=== PATIENT | male | born 1965 | race Hispanic/Latino ===

== ENCOUNTER 2016-06-19 08:19 | Inpatient (IN) | payer OTHER ==
[~2016-06-19] VITALS: Ht 190.5 cm; Wt 144.7 kg
[~2016-06-19 08:19] MED LIST: ALBUTEROL2.5 MG/3 M INH; ALLERGY12.5 MG/5 PO; AMOXIL500 MG PO; ARTIFICIAL TEA1 EACH OPH; BISAC-EVAC10 M1 PR; CILOXAN5 ML OPH; CLONAZEPAM2 MG PO; CLOZAPINE100 MG PO; CLOZAPINE50 MG PO; DESITIN DIAPER28 GM TOP; DISULFIRAM250 MG PO; FIORICET 325 MG1 TAB PO; FLOMAX0.4 M1 PO; FLUTICASONE PRO16 GM NAS; HALOPERIDOL2 M1 PO; HEPARIN SO5000 UNIT3 SC; HYDRODIURIL 112.5 MG PO; HYDRODIURIL 2525 MG PO; IBUPROFEN100 MG/52 PO; IPRATROPIU0.2 MG/1 M INH; ITCH RELIEF CRE28 GM TOP; KLONOPIN1 M1 PO; LAMICTAL 100MG100 MG PO; LAMOTRIGINE150 M1 PO; MIRALAX119 GM PO; MIRTAZAPINE15 MG PO; NYSTATIN-TRIAMC15 GM TOP; NYSTATIN100000 UNI PO; OLANZAPINE15 M1 PO; PANTOPRAZOLE SO40 MG PO; PERCOCET 325 MG1 TA2 PO; PRINIVIL5 M1 PO; PROPRANOLOL HCL40 MG PO; PROTONIX IV40 M1 IV; PROTONIX40 M3 IV; SIMVASTATIN20 MG PO; TYLENOL325 M1 PO; VALPROIC A250 MG/53 PO; VITAMIN A & D56.7 GM TOP; ZOFRAN4 M1 SL; ZYPREXA15 MG PO; ZYPREXA5 MG
--- NOTE | 2016-06-19 08:43 | NUR ---
PT BIBA FROM HOME FOR C/O SOB. PT WITH TEMP OF 102.8. PT RECEIVED NEB TREATMENT ON ROUTE TO ED BY MEDIC FOR WHEEZING. PT HAS DIMINISHED BREATH SOUNDS ON ARRIVAL. PT 02 SAT 93% ON RA. PT C/O FEELING LIKE HE CAN'T BREATH. PT PLACED ON O2 2L VIA NC SAT 94%. RESP. PAGED FOR SECOND NEB TREATMENT. PT STATES HE HAS BEEN USING HIS MDI. PT DENIES COUGH. FLU SWAB OBTAINED AND SENT
--- NOTE | 2016-06-19 08:47 | ED DYSPNEA/ASTHMA COMPLAINT ---
History of Present Illness General Chief Complaint: Dyspnea (COPD, CHF, Other) Stated Complaint: BIBA FOR SOB Source: patient Exam Limitations: no limitations Vital Signs & Intake/Output Vital Signs & Intake/Output Vital Signs Date Time Temp Pulse Resp B/P Pulse O2 O2 Flow FiO2 Ox Delivery Rate 06/19 1316 102.7 125 20 148/77 06/19 1313 102.7 06/19 1245 102.7 125 20 148/77 94 Nasal 3.0L Cannula 06/19 1131 101.0 115 18 126/73 95 Nasal 2.0L Cannula 06/19 1102 100.8 120 22 128/72 06/19 1017 100.8 120 22 128/72 96 Nasal 3.0L Cannula 06/19 0948 100.6 06/19 0948 100.6 06/19 0921 101.2 145 22 145/68 96 Nasal 2.0L Cannula 06/19 0908 94 Nasal 2.0L Cannula 06/19 0850 94 Nasal Cannula 06/19 0849 102.8 06/19 0843 102.8 06/19 0832 102.8 139 22 158/95 92 Room Air Allergies Coded Allergies: ceftriaxone (fever, rash, eosinophilia 01/16/16) Reconcile Medications Amlodipine Besylate 10 MG TABLET 1 TAB PO DAILY HTN (Reported) Aspirin (Aspirin*) 81 MG TAB.CHEW 2 TAB PO DAILY HEART HEALTH Losartan Potassium 25 MG TABLET 1 TAB PO DAILY HTN (Reported) Metoprolol Succinate 25 MG TAB 1 TAB PO DAILY heart rate control Olanzapine 20 MG TABLET 1 TAB PO BID SCHIZOAFFECTIVE DISORDER (Reported) Simvastatin (Simvastatin*) 20 MG TABLET 1 TAB PO QPM CHOLESTREOL (Reported) Triage Note: PT BIBA FROM HOME FOR C/O SOB. PT WITH TEMP OF 102.8. PT RECEIVED NEB TREATMENT ON ROUTE TO ED BY MEDIC FOR WHEEZING. PT HAS DIMINISHED BREATH SOUNDS ON ARRIVAL. PT 02 SAT 93% ON RA. PT C/O FEELING LIKE HE CAN'T BREATH. PT PLACED ON O2 2L VIA NC SAT 94%. RESP. PAGED FOR SECOND NEB TREATMENT. PT STATES HE HAS BEEN USING HIS MDI. PT DENIES COUGH. FLU SWAB OBTAINED AND SENT Triage Nurses Notes Reviewed? yes HPI: THIS PATIENT is a 50-year-old male with a past medical history including CHF, hypertension, and schizoaffective disorder who presented to the emergency department today brought in by ambulance for evaluation of shortness of breath. The patient reported that he started feeling short of breath this morning while he was sitting down. The patient reported that he also developed some chest pain in the center of his chest which lasted approximately one hour and then resolved on its own. He reported that the chest pain got better when he sat up from a laying position. He was unable to read this chest pain on a scale of 1- 10. It was nonradiating. The patient reported that yesterday he was having 10 out of 10 central abdominal pain with nausea and no vomiting. He reported chills, but denied any fevers. The patient denied any diarrhea or constipation. He denied any current chest pain, palpitations, visual changes, headaches, jaw pain, arm pain, numbness or tingling in his extremities, or any other associated symptoms. (HORTENCIA KRAMER PA-C) Past History Travel History Traveled to [place] past 21 day No Medical History Any Pertinent Medical History? see below for history Neurological: TIA EENT: NONE Cardiovascular: CHF, hypertension Respiratory: Sleep Apnea Gastrointestinal: NONE Hepatic: NONE Renal: NONE Musculoskeletal: fracture, ANKLE FX/SX Psychiatric: schizo affective disorder, history of alcohol abuse Endocrine: NONE Blood Disorders: NONE Cancer(s): NONE PIGEON FANCIER/Reproductive: NONE History of MRSA: No History of VRE: No History of CDIFF: No Surgical History Surgical History: ANKLE FX/SX Psychosocial History Who do you live with Family Services at Home Nursing What is your primary language Hebrew Tobacco Use: Current Daily Use Daily Tobacco Use Amount/Type: =< 4 Cigarettes daily ETOH Use: denies use Illicit Drug Use: denies illicit drug use Family History Family History, If Any: Relation not specified for: *No pertinent family history Hx Contributory? No (HORTENCIA KRAMER PA-C) Review of Systems Review of Systems Constitutional: Reports: see HPI. EENTM: Reports: no symptoms. Respiratory: Reports: see HPI. Cardiovascular: Reports: see HPI. GI: Reports: see HPI. Genitourinary: Reports: no symptoms. Musculoskeletal: Reports: no symptoms. Skin: Reports: no symptoms. Neurological/Psychological: Reports: no symptoms. All Other Systems: Reviewed and Negative (HORTENCIA KRAMER PA-C) Physical Exam Physical Exam Respiratory: normal breath sounds, chest non-tender, NO WHEEZES, RALES, OR RHONCHI. nO ACCESSORY MUSCLE USE. nO STRIDOR. nO DECREASED BREATH SOUNDS Comments: Well-developed well-nourished person in mild distress HEENT: Normal EENT exam, head normocephalic, moist mucous membranes PERRLA bilaterally Pharynx normal. No swelling or edema. Neck: Supple, no lymphadenopathy Back: Normal inspection Cardiovascular: Regular rate and rhythm with no murmurs, rubs or gallops. No JVD. No carotid bruits. No lower extremity edema Abdomen: Soft. Nontender. Nondistended. Normoactive bowel sounds. No organomegaly appreciated. Normoactive bowel sounds Extremity: No edema, no calf tenderness to palpation, normal and equal pulses. Neuro: Alert oriented x3, cranial nerves II through XII grossly intact. Skin: No appreciable rash on exposed skin, skin is warm and dry. Psych: Mood and affect is normal Core Measures ACS in differential dx? Yes Severe Sepsis Present: No Septic Shock Present: No (WILLIAMS ANDERSON,HORTENCIA) Progress Differential Diagnosis: asthma, AMI, bronchitis, costochondritis, CHF, COPD, musculoskeletal pain, pericarditis, pulmonary embolism, pneumonia, pneumothorax, unstable angina Plan of Care: Orders Procedure Date/time Status MAGNESIUM 06/20 0600 Active CBC WITHOUT DIFFERENTIAL 06/20 0600 Active BASIC ELECTROLYTES PLUS BUN&CR 06/20 0600 Active Heart Healthy Diet 06/19 D Active TROPONIN LEVEL 06/19 2000 Active EKG 06/19 2000 Active TROPONIN LEVEL 06/19 1400 Active EKG 06/19 1400 Active TRC EVALUATION (GEN) 06/19 1338 Active OXYGEN SETUP (GEN) 06/19 1338 Active Pathway - chart 06/19 1338 Active House Staff 06/19 1338 Active Patient Data 06/19 1338 Active STREP PNEUMO URINARY ANTIGEN 06/19 1338 Active LEGIONELLA URINARY ANTIGEN 06/19 1338 Active ECHOCARDIOGRAM 06/19 1338 Active Admit to inpatient 06/19 1315 Active Vital Signs 06/19 1315 Active Code Status 06/19 1315 Active Patient Data 06/19 1243 Active LACTIC ACID 06/19 1136 Complete CULTURE,URINE 06/19 0947 Active URINALYSIS 06/19 0947 Complete BLOOD CULTURE 06/19 0922 Active AEROSOL (GEN) 06/19 0907 Complete BLOOD CULTURE 06/19 0900 Active Intake & Output 06/19 0850 Active LACTIC ACID 06/19 0836 Complete ARTERIAL BLOOD GAS (GEN) 06/19 0835 Complete RAPID VIRAL INFLUENZA A 06/19 0835 Complete THYROID STIMULATING HORMONE 06/19 0835 Complete TROPONIN LEVEL 06/19 0835 Complete MAGNESIUM 06/19 0835 Complete LIPASE 06/19 834 Complete FREE T4 06/19 834 Complete ETHANOL 06/19 0835 Complete DIRECT BILIRUBIN 06/19 0835 Complete COMPREHENSIVE METABOLIC PANEL 06/19 0835 Complete CBC WITHOUT DIFFERENTIAL 06/19 08 Complete B-TYPE NATRIURETIC PEP (BNP) 06/19 834 Complete AMYLASE 06/19 0835 Complete EKG 06/19 0833 Active VTE Mechanical Prophylaxis 06/19 UNK Active Vital Signs 06/19 UNK Active Telemetry/Research Worker Encyclopedia 06/19 UNK Active Intake & Output 06/19 UNK Active Current Medications Sig/Earnest Start time Last Medication Dose Stop Time Status Admin Amlodipine Besylate 10 MG DAILY 06/20 1000 UNVr (Norvasc) Losartan Potassium 25 MG DAILY 06/20 1000 UNVr (Cozaar) Olanzapine 10 MG Q6 06/19 1800 UNVr (Zyprexa) Atorvastatin Calcium 10 MG 1700 06/19 1700 UNVr (Lipitor) Heparin Sodium 5,000 UNIT Q8 06/19 1400 UNVr (Porcine) Sodium Chloride 1,000 ML ONCE ONE 06/19 1345 UNVr (Normal Saline 0.9%) 06/19 2024 Acetaminophen 650 MG Q6P PRN 06/19 1330 UNVr (Tylenol) Acetaminophen/ 1 TAB Q6P PRN 06/19 1330 UNVr Hydrocodone Bitart (Vicodin) Magnesium Sulfate 2 GM ONCE ONE 06/19 1330 UNVr (Mag Sulfate) 06/19 1729 Dextrose/Water 250 ML (D5W) Oxycodone HCl 10 MG Q6P PRN 06/19 1330 UNVr (Roxicodone) Amiodarone HCl 0 .STK-MED ONE 06/19 1046 CAN (Cordarone) Laboratory Tests 06/19/16 1259: Urinalysis LIGHT H, Urine Color YEL, Urine Clarity CLEAR, Urine pH 6.5, Ur Specific Beaver 1.010, Urine Protein 100 H, Urine Ketones NEG, Urine Nitrite NEG, Urine Bilirubin NEG, Urine Urobilinogen 0.2, Ur Leukocyte Esterase NEG, Ur Microscopic SEDIMENT EXAMINED, Urine RBC 1-3, Urine WBC RARE, Ur Epithelial Cells RARE, Urine Hemoglobin NEG, Urine Glucose NEG 06/19/16 1135: Lactic Acid 1.8 06/19/16 1005: pH 7.43, pCO2 39, pO2 67 L, HCO3 25, ABG O2 Sat (Measured) 93.0 L, Carboxyhemoglobin 1.4 L, O2 Concentration % 2L, O2 Delivery Method NC, Phlebotomy Draw Site LEFT RADIAL 06/19/16 0840: Lactic Acid 2.4 H 06/19/16 0840: Anion Gap 11, Estimated GFR > 60, BUN/Creatinine Ratio 15.0, Glucose 137 H, Calcium 9.3, Magnesium 1.4 L, Total Bilirubin 0.8, Direct Bilirubin 0.5 H, AST 12 L, ALT 30, Alkaline Phosphatase 99, Troponin I < 0.01, Xdo-B-Vlvldhnnhza Pept 30.1, Total Protein 7.3, Albumin 4.0, Globulin 3.3, Albumin/Globulin Ratio 1.2, Amylase 46, Lipase 49, TSH 0.976, Free T4 1.15, CBC w Diff MAN DIFF ORDERED , RBC 5.01, MCV 84.7, MCH 27.8, RDW 15.0 H, MPV 7.7, Gran % 93.1 H, Lymphocytes % 3.3 L, Monocytes % 3.4, Eosinophils % 0.2, Basophils % 0 L, Absolute Granulocytes 15.4 H, Segmented Neutrophils 80 H, Band Neutrophils 4, Absolute Lymphocytes 0.5 L, Lymphocytes 9 L, Monocytes 7, Absolute Monocytes 0.6, Absolute Eosinophils 0, Absolute Basophils 0, Platelet Estimate VERIFIED BY SMEAR, Normocytic RBCs VERIFIED, Normochromic RBCs VERIFIED, PUBS MCHC 32.9 L, Serum Alcohol < 10.0 Microbiology 06/19 1337 URINE ROUT: Legionella Antigen - COLB 06/19 1337 URINE ROUT: Streptococcus pneumoniae Antigen (M - COLB 06/19 946 URINE ROUT: Urine Culture - ORD 06/19 919 BLOOD: Blood Culture - RECD 06/19 919 BLOOD: Blood Culture - RECD 06/19 0750 BLOOD: Blood Culture - CAN Cancelled: QNS 06/19 839 BLOOD: Blood Culture - CAN Cancelled: QNS Diagnostic Imaging: Viewed by Me: Radiology Read, CT Scan. Discussed w/RAD: Radiology Read, CT Scan. Radiology Impression: PATIENT: DEISI EMMANUEL PRESENT AGE: 50 PATIENT ACCOUNT NO: [id number] : 66 LOCATION: [facility] ORDERING PHYSICIAN: HORTENCIA KRAMER PA-C SERVICE DATE: 06/19/16 EXAM TYPE: RAD - XRY-PORTABLE CHEST XRAY EXAMINATION: XR PORTABLE CHEST CLINICAL INFORMATION: Shortness of breath. Assess for pneumonia. COMPARISON: Chest x-ray 01/24/2016. TECHNIQUE: Portable AP 70 degrees semiupright view of the chest was obtained. FINDINGS: The lung daniel are poorly expanded bilaterally. The lung daniel appear clear bilaterally without focal consolidation. There are no pleural effusions. The cardiac silhouette is normal. The central pulmonary vasculature is normal. There are no acute osseous findings. The previously noted tracheostomy tube is no longer present. There are monitor leads overlying the chest. IMPRESSION: 1. There are no acute cardiopulmonary findings. 2. There has been interval resolution of the multi lobar pneumonia. DICTATED BY: CONSTANCE SANCHEZ MD DATE/TIME DICTATED:06/19/16945 DENTAL CERAMIST:NAVEED DATE/TIME TRANSCRIBED:06/19/16945 CONFIDENTIAL, DO NOT COPY WITHOUT APPROPRIATE AUTHORIZATION. <Electronically signed in Other Vendor System> SIGNED BY: CONSTANCE SANCHEZ MD 06/19/16 0956, PATIENT: DEISI EMMANUEL PRESENT AGE: 50 PATIENT ACCOUNT NO: [id number] : 67 LOCATION: [facility] ORDERING PHYSICIAN: HORTENCIA KRAMER PA-C SERVICE DATE: 06/19/165 EXAM TYPE: CAT - CTA CHEST-PULMONARY EMBOLISM EXAMINATION: CT ANGIOGRAM OF THE CHEST WITH AND WITHOUT CONTRAST (CT PULMONARY ANGIOGRAM FOR PE) CLINICAL INFORMATION: VTach. Chest pain. Shortness of breath. COMPARISON: Chest x-rays from 01/24/2016 and 06/19/2016. CTA chest from 01/07/2016 TECHNIQUE: Prior to contrast administration, noncontrast localization images were obtained. Subsequently, multidetector volumetric imaging was performed from the thoracic inlet to below the diaphragms following the administration of 120 mL Optiray 350 intravenous contrast. No contrast reaction reported. Sagittal, coronal, and MIP oblique sagittal reformatted images were obtained on the CT workstation, uploaded to PACS, and reviewed. Total exam dose-length product 540 mGy-cm FINDINGS: QUALITY OF STUDY/CONTRAST BOLUS: Suboptimal. There is denser contrast in the aorta than in the pulmonary arteries. This delayed bolus limits assessment. PULMONARY ARTERIES: No central pulmonary embolism. No expansion of the segmental pulmonary arteries. THORACIC AORTA: No aneurysm or dissection. LUNG: Platelike opacities are present scattered within the right upper and lower lobes as well as the left lower lobe and lingula. No discrete consolidation is visualized. PLEURA: No pleural effusion or pneumothorax. MEDIASTINUM: There is a trace amount of pericardial fluid. The heart size is normal. No evidence of septal bowing or right heart strain. No mediastinal or hilar adenopathy. CHEST WALL/AXILLA: No axillary or internal mammary lymphadenopathy. There is a simple 2.2 cm cyst within the right anterior chest wall. OSSEOUS STRUCTURES: Multilevel degenerative change of the spine. No acute osseous abnormalities. UPPER ABDOMEN: Low density liver compatible with hepatic steatosis. No reflux of contrast into the hepatic veins to suggest elevated right heart pressures. IMPRESSION: Delayed bolus timing. No central pulmonary embolism. Platelike opacities scattered within both lungs most suggestive of atelectasis or scar. No consolidation. No pleural effusion. No evidence of adenopathy. DICTATED BY: CHUN MOYER MD DATE/ TIME DICTATED:06/19/161138 DENTAL CERAMIST:NAVEED DATE/TIME TRANSCRIBED: 06/19/161138 CONFIDENTIAL, DO NOT COPY WITHOUT APPROPRIATE AUTHORIZATION. < Electronically signed in Other Vendor System> SIGNED BY: CHUN MOYER MD 06/19/16 1151 Initial ED EKG: normal intervals, nonspecific ST T wave chg, sinus tachycardia, 139 beats per minute Comments: 06/19/2016 10:46:03 AM: This patient was intermittently in what looks like ventricular tachycardia. EKG was shared with Dr. Garcia. She recommended bolusing this patient with 300 mg of IV amiodarone. He will get a CT angiogram of the chest. I have paged cardiology. 06/19/2016 10:47:41 AM: I discussed this patient with on-call texturing machine fixer, Dr. Cameron. He reported that he will consult on this patient. 06/19/2016 11:34:54 AM: Was informed by Dr. Garcia that Dr. Cameron, texturing machine fixer, would like the order for amiodarone canceled at this time. Awaiting results of CT angiogram of the chest. Patient officially signed out to Dr. Garcia for telemetry admission. The patient is still tachycardic and tachypnea neck. He will be a telemetry observation under Dr. Cameron who accepted the patient. (HORTENCIA KRAMER PA-C) Departure Departure Disposition: STILL A PATIENT Condition: Stable Clinical Impression Primary Impression: Leukocytosis Qualifiers: Leukocytosis type: unspecified Qualified Code: D72.829 - Elevated white blood cell count, unspecified Secondary Impressions: Sepsis Qualifiers: Sepsis type: sepsis due to unspecified organism Qualified Code: A41.9 - Sepsis, unspecified organism Referrals: KEVIN RODRIGUEZ APRN (PCP/Family) Departure Forms: Customer Survey General Discharge Information Prescriptions: Current Visit Scripts Aspirin (Aspirin*) 2 TAB PO DAILY #30 Metoprolol Succinate 1 TAB PO DAILY #30 TAB Admission Note Spoke With: TOYA ZAVALA PhD,NIYA Campoverde Documentation of Exam: Documentation of any treatments & extenuating circumstances including Concerns Regarding Discharge (functional status, medication knowledge or non-compliance, living conditions, etc.) that warrant an admission rather than observation: [ this patient has a history of schizoaffective disorder, CHF, and hypertension who was recently admitted for approximately 6 weeks to [facility] requiring tracheotomy. The patient presented short of breath. He has been febrile, tachycardic, tachypneic and with an elevated white blood cell count. He has lactic acidosis. This patient warrants a telemetry admission to trend his labs, cardiology consultation, possible echocardiogram, serial troponin levels, serial EKGs, gentle hydration due to his history of CHF, and close monitoring. Premature discharge could prove medically harmful.] (HORTENCIA KRAMER PA-C) PA/FUNERAL DRIVER Co-Sign Statement Statement: ED Attending supervision documentation- [] I saw and evaluated the patient. I have also reviewed all the pertinent lab results and diagnostic results. I agree with the findings and the plan of care as documented in the PA's/FUNERAL DRIVER's documentation. [X] I have reviewed the ED Record and agree with the PA's/FUNERAL DRIVER's documentation. [] Additions or exceptions (if any) to the PAs/FUNERAL DRIVER's note and plan are summarized below: [] (LAURENCE ZAVALA,EARLENE) Critical Care Note Critical Care Note Critical Care Time: 30-74 min (HORTENCIA KRAMER PA-C)
--- NOTE | 2016-06-19 08:59 | NUR ---
PT RECEIVING NEB TREATMENT
[2016-06-19 09:06] LABS: ABSOLUTE BASOPHIL COUNT 0 /CUMM (0.0-0.2); ABSOLUTE EOSINOPHIL COUNT 0 /CUMM (0.0-0.7); ABSOLUTE GRANULOCYTE CT 15.4 /CUMM (1.4-6.5); ABSOLUTE LYMPH COUNT 0.5 /CUMM (1.2-3.4); ABSOLUTE MONOCYTE COUNT 0.6 /CUMM (0.10-0.60); BASOPHIL % 0 % (0.0-2.0); EOSINOPHIL % 0.2 % (0-5); GRANULOCYTE % 93.1 % (42.2-75.2); HEMATOCRIT 42.4 % (42-52); MEAN CORPUSCULAR HGB 27.8 PG (27.0-31.0); MEAN CORPUSCULAR HGB CONC 32.9 G/DL (33.0-37.0); MEAN CORPUSCULAR VOLUME 84.7 FL (80.0-94.0); MEAN PLATELET VOLUME 7.7 FL (7.4-10.4); PLATELET COUNT 258 /CUMM (130-400); RED BLOOD CELL CT 5.01 /CUMM (4.70-6.10); WHITE BLOOD CELL COUNT 16.5 /CUMM (4.8-10.8)
--- NOTE | 2016-06-19 09:18 | NUR ---
SECOND IV ESTABLISHED PT RECEIVING IV APAP FOR FEVER
--- NOTE | 2016-06-19 09:31 | NUR ---
CRITICAL TEST RESULTS [id number] DEISI EMMANUEL 50 M TESTS AND RESULTS: LACTIC ACID 2.4 Results received and read back by: JUAN RAMON FOSTER Results received date and time: 06/19/16 0931 The following provider was notified of the results, and read the results back: HEATHER Campoverde PA-C Notified date and time: 06/19/16 at 0928
--- NOTE | 2016-06-19 09:56 | RADIOLOGY REPORT ---
EXAMINATION: XR PORTABLE CHEST CLINICAL INFORMATION: Shortness of breath. Assess for pneumonia. COMPARISON: Chest x-ray 01/24/2016. TECHNIQUE: Portable AP 70 degrees semiupright view of the chest was obtained. FINDINGS: The lung daniel are poorly expanded bilaterally. The lung daniel appear clear bilaterally without focal consolidation. There are no pleural effusions. The cardiac silhouette is normal. The central pulmonary vasculature is normal. There are no acute osseous findings. The previously noted tracheostomy tube is no longer present. There are monitor leads overlying the chest. IMPRESSION: 1. There are no acute cardiopulmonary findings. 2. There has been interval resolution of the multi lobar pneumonia.
--- NOTE | 2016-06-19 11:02 | NUR ---
PT HAD EPISODE OF VENT TACH PT STARTED ON AMIODERONE DRIP TO CT AT THIS TIME
--- NOTE | 2016-06-19 11:31 | NUR ---
PT RETURNED FROM CT SCAN
--- NOTE | 2016-06-19 11:49 | NUR ---
PT HAD EPISODE OF WHAT APPREARED TO BE SINUS TACH DR. PITTMAN DOWN TO CHECK ON PT STATES IT MUST HAVE BEEN ARTIFACT. AMIODORONE D/C
--- NOTE | 2016-06-19 11:51 | CT SCAN REPORT ---
EXAMINATION: CT ANGIOGRAM OF THE CHEST WITH AND WITHOUT CONTRAST (CT PULMONARY ANGIOGRAM FOR PE) CLINICAL INFORMATION: VTach. Chest pain. Shortness of breath. COMPARISON: Chest x-rays from 01/24/2016 and 06/19/2016. CTA chest from 01/07/2016 TECHNIQUE: Prior to contrast administration, noncontrast localization images were obtained. Subsequently, multidetector volumetric imaging was performed from the thoracic inlet to below the diaphragms following the administration of 120 mL Optiray 350 intravenous contrast. No contrast reaction reported. Sagittal, coronal, and MIP oblique sagittal reformatted images were obtained on the CT workstation, uploaded to PACS, and reviewed. Total exam dose-length product 540 mGy-cm FINDINGS: QUALITY OF STUDY/CONTRAST BOLUS: Suboptimal. There is denser contrast in the aorta than in the pulmonary arteries. This delayed bolus limits assessment. PULMONARY ARTERIES: No central pulmonary embolism. No expansion of the segmental pulmonary arteries. THORACIC AORTA: No aneurysm or dissection. LUNG: Platelike opacities are present scattered within the right upper and lower lobes as well as the left lower lobe and lingula. No discrete consolidation is visualized. PLEURA: No pleural effusion or pneumothorax. MEDIASTINUM: There is a trace amount of pericardial fluid. The heart size is normal. No evidence of septal bowing or right heart strain. No mediastinal or hilar adenopathy. CHEST WALL/AXILLA: No axillary or internal mammary lymphadenopathy. There is a simple 2.2 cm cyst within the right anterior chest wall. OSSEOUS STRUCTURES: Multilevel degenerative change of the spine. No acute osseous abnormalities. UPPER ABDOMEN: Low density liver compatible with hepatic steatosis. No reflux of contrast into the hepatic veins to suggest elevated right heart pressures. IMPRESSION: Delayed bolus timing. No central pulmonary embolism. Platelike opacities scattered within both lungs most suggestive of atelectasis or scar. No consolidation. No pleural effusion. No evidence of adenopathy.
--- NOTE | 2016-06-19 12:57 | NUR ---
HEATHER Campoverde PA-C AWARE OF RETURN OF FEVER
--- NOTE | 2016-06-19 12:58 | NUR ---
HOUSE STAFF MADE AWARE OF PT TEMP
--- NOTE | 2016-06-19 13:16 | History & Physical ---
General Information and HPI MD Statement: I have seen and personally examined DEISI EMMANUEL and documented this H&P. The patient is a 50 year old M who presented with a patient stated chief complaint of [shortness of breath]. Source of Information: patient, old records History of Present Illness: This is a 50-year-old gentleman with a past medical history significant for hypertension, hyperlipidemia, schizoaffective disorder, previous admission at [facility] in January 2016 for multilobar pneumonia requiring prolonged intubation and a subsequent tracheostomy presented to the emergency room with the chief complaint of shortness of breath. Patient states that he woke up this morning and experienced shortness of breath with accompanying fevers. He denies any other symptoms such as chest pain, nausea vomiting diarrhea, recent sick contacts. He does however complain of chills and fevers. While in the emergency room at telemetry strip was suspicious of ventricular tachycardia which was brief and the patient was awake and alert through the entire event. This was seen and evaluated by Dr. Cameron who thought this was secondary to lead misplacement. Again, at present the patient denies any chest pain, his only complaint of shortness of breath. Allergies/Medications Allergies: Coded Allergies: ceftriaxone (fever, rash, eosinophilia 01/16/16) Home Med list Amlodipine Besylate 10 MG TABLET 1 TAB PO DAILY HTN (Reported) Losartan Potassium 25 MG TABLET 1 TAB PO DAILY HTN (Reported) Olanzapine 10 MG TABLET 1 TAB PO Q6 SCHIZOAFFECTIVE DISORDER (Reported) Simvastatin (Simvastatin*) 20 MG TABLET 1 TAB PO QPM CHOLESTREOL (Reported) Past History Travel History Traveled to [place] past 21 day No Medical History EENT: NONE Cardiovascular: hypertension, hyperlipidemia Respiratory: Sleep Apnea Gastrointestinal: NONE Hepatic: NONE Renal: NONE Psychiatric: schizo affective disorder Endocrine: NONE Blood Disorders: NONE Cancer(s): NONE 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 parent Services at Home: Nursing Primary Language: Hebrew, Tajik ETOH Use: denies use Illicit Drug Use: denies illicit drug use Functional Ability ADLs Independent: dressing, eating, toileting, bathing. Ambulation: independent IADLs Independent: shopping, housework, finances, food prep, telephone, transportation , medication admin. Review of Systems Review of Systems Constitutional: Reports: see HPI. Exam & Diagnostic Data Last 24 Hrs of Vital Signs/I&O Vital Signs Date Time Temp Pulse Resp B/P Pulse O2 O2 Flow FiO2 Ox Delivery Rate 06/19 1316 102.7 125 20 148/77 06/19 1313 102.7 06/19 1245 102.7 125 20 148/77 94 Nasal 3.0L Cannula 06/19 1131 101.0 115 18 126/73 95 Nasal 2.0L Cannula 06/19 1102 100.8 120 22 128/72 06/19 1017 100.8 120 22 128/72 96 Nasal 3.0L Cannula 06/19 0948 100.6 06/19 0948 100.6 06/19 0921 101.2 145 22 145/68 96 Nasal 2.0L Cannula 06/19 0908 94 Nasal 2.0L Cannula 06/19 0850 94 Nasal Cannula 06/19 0849 102.8 06/19 0843 102.8 06/19 0832 102.8 139 22 158/95 92 Room Air Intake & Output 06/19 1600 06/19 0800 06/19 0000 Intake Total 200 Output Total Balance 200 Intake, IV 200 Patient 285 lb Weight Physical Exam General Appearance Alert, Oriented X3, Cooperative, Mild Distress Skin No Rashes, No Breakdown HEENT Atraumatic, PERRLA, EOMI Cardiovascular Regular Rate, Normal S1, Normal S2, No Murmurs Lungs Clear to Auscultation, Normal Air Movement Abdomen Normal Bowel Sounds, Soft, No Tenderness, No Hepatospenomegaly Neurological Normal Speech, Strength at 5/5 X4 Ext, Normal Tone, Sensation Intact, Cranial Nerves 3-12 NL Extremities No Clubbing, No Cyanosis, No Edema Last 24 Hrs of Labs/Claude: Laboratory Tests 06/19/16 1259: Urine Color YEL, Urine Clarity CLEAR, Urine pH 6.5, Ur Specific [place] 1.010, Urine Protein 100 H, Urine Ketones NEG, Urine Nitrite NEG, Urine Bilirubin NEG, Urine Urobilinogen 0.2, Ur Leukocyte Esterase NEG, Ur Microscopic EXAM NOT REQUIRED, Urine Hemoglobin NEG, Urine Glucose NEG 06/19/16 1135: Lactic Acid 1.8 06/19/16 1005: pH 7.43, pCO2 39, pO2 67 L, HCO3 25, ABG O2 Sat (Measured) 93.0 L, Carboxyhemoglobin 1.4 L, O2 Concentration % 2L, O2 Delivery Method NC, Phlebotomy Draw Site LEFT RADIAL 06/19/16 0840: Lactic Acid 2.4 H 06/19/16 0840: Anion Gap 11, Estimated GFR > 60, BUN/Creatinine Ratio 15.0, Glucose 137 H, Calcium 9.3, Magnesium 1.4 L, Total Bilirubin 0.8, Direct Bilirubin 0.5 H, AST 12 L, ALT 30, Alkaline Phosphatase 99, Troponin I < 0.01, Hoi-R-Jfemoshhfst Pept 30.1, Total Protein 7.3, Albumin 4.0, Globulin 3.3, Albumin/Globulin Ratio 1.2, Amylase 46, Lipase 49, TSH 0.976, Free T4 1.15, CBC w Diff MAN DIFF ORDERED , RBC 5.01, MCV 84.7, MCH 27.8, RDW 15.0 H, MPV 7.7, Gran % 93.1 H, Lymphocytes % 3.3 L, Monocytes % 3.4, Eosinophils % 0.2, Basophils % 0 L, Absolute Granulocytes 15.4 H, Segmented Neutrophils 80 H, Band Neutrophils 4, Absolute Lymphocytes 0.5 L, Lymphocytes 9 L, Monocytes 7, Absolute Monocytes 0.6, Absolute Eosinophils 0, Absolute Basophils 0, Platelet Estimate VERIFIED BY SMEAR, Normocytic RBCs VERIFIED, Normochromic RBCs VERIFIED, PUBS MCHC 32.9 L, Serum Alcohol < 10.0 Microbiology 06/19 946 URINE ROUT: Urine Culture - ORD 06/19 919 BLOOD: Blood Culture - RECD 06/19 919 BLOOD: Blood Culture - RECD 06/19 849 BLOOD: Blood Culture - CAN Cancelled: QNS 06/19 839 BLOOD: Blood Culture - CAN Cancelled: QNS Diagnostic Data EKG Results Rate 139, MI 140, QRS 78, QTC 444 Sinus tachycardia No acute ST to T wave changes CXR Results IMPRESSION: 1. There are no acute cardiopulmonary findings. 2. There has been interval resolution of the multi lobar pneumonia. Other Results CT angiogram chest IMPRESSION: Delayed bolus timing. No central pulmonary embolism. Platelike opacities scattered within both lungs most suggestive of atelectasis or scar. No consolidation. No pleural effusion. No evidence of adenopathy. Assessment/Plan Assessment: Assessment- 1. Shortness of breath 2. Questionably ventricular ectopy 3. Hypomagnesemia, 1.4 4. Leukocytisis, [id number], no obvious source of infection 5. HTN 6. HLD 7. Schizoaffective disorder 8. Tachycardia 9. Anxiety Plan- Admit to telemetry Vitals per protocol Trend troponin and EKG 3 sets Cardiology consult Echocardiogram No evidence of pneumonia or UTI per chest x-ray/CAT scan and urinalysis respectively; likely viral, will hold off on anti biotics for now Panculture Flu swab is negative Strep and Legionella urine antigens Tachycardia is likely 2/2 anxiety Replete magnesium Continue home doses of losartan and Norvasc Continue statin Continue olanzapine Heart healthy diet DVT prophylaxis with subcutaneous heparin Full code As Ranked By This Provider Problem List: 1. Leukocytosis Qualifiers Leukocytosis type: unspecified Qualified Code: D72.829 - Elevated white blood cell count, unspecified 2. Acute respiratory failure with hypoxia 3. JAMA (obstructive sleep apnea) 4. Schizoaffective disorder 5. Hypomagnesemia 6. Hypertension Core Measures/Miscellaneous Acute Coronary Syndrome ACS Diagnosis: No Cerebrovascular Accident CVA/TIA Diagnosis: No Congestive Heart Failure CHF Diagnosis: No Venous Thromboembolism VTE Risk Factors: Age > 40, Smoking VTE Prophylaxis Ordered Inpt: Pharm- Heparin No Mech VTE prophylaxis d/t: No contraindications No VTE Pharm Prophylaxis d/t: No contraindications VTE Diagnosis: No VTE Type: NONE VTE Confirmed by (Test): NONE Severe Sepsis Severe Sepsis Present: No Septic Shock Septic Shock Present: No Miscellaneous Documentation Attending Case Discussed With: Dr. Cameron Primary Care Physician: KEVIN RODRIGUEZ APRN Patient sees these Specialists Dr. Abbott (Psychiatry) Level of Patient Care: Telemetry Resident Review Statement Resident Statement: examined this patient, discussed with dental intern Venous Thromboembolism VTE Risk Factors: Age > 40, Smoking VTE Prophylaxis Ordered Inpt: Pharm- Heparin No Mech VTE prophylaxis d/t: No contraindications No VTE Pharm Prophylaxis d/t: No contraindications VTE Diagnosis: No VTE Type: NONE VTE Confirmed by (Test): NONE Severe Sepsis Severe Sepsis Present: No Septic Shock Septic Shock Present: No Miscellaneous Documentation Attending Case Discussed With: Dr. Cameron Primary Care Physician: KEVIN RODRIGUEZ APRN Patient sees these Specialists Dr. Abbott (Psychiatry) Level of Patient Care: Telemetry Resident Review Statement Resident Statement: examined this patient, discussed with dental intern
--- NOTE | 2016-06-19 13:26 | NUR ---
PT ADMITTED TO ROOM 176-1
[2016-06-19] MEDS ORDERED: AMLODIPINE BESY10 M1 PO (13:36)
[2016-06-19] MEDS ORDERED: OLANZAPINE10 M1 PO (13:36)
[2016-06-19] MEDS ORDERED: LOSARTAN POTASS25 M1 PO (13:36)
[2016-06-19] MEDS ORDERED: SIMVASTATIN20 M2 PO (13:37)
--- NOTE | 2016-06-19 14:24 | NUR ---
HOUSE STAFF IN ROOM PT STATES HE IS HUNGRY FOOD TRAY ORDERED
--- NOTE | 2016-06-19 14:32 | NUR ---
PT MEDICATED DIRECTED GIVEN ATIVAN FOR INCREASED ANXIETY MAG INFUSING DIRECTED
--- NOTE | 2016-06-19 15:23 | NUR ---
HOUSE STAFF PAGED TO LOOK AT RECENT EKG
--- NOTE | 2016-06-19 16:15 | NUR ---
PT RESTING COMFORTABLY WAITING FOR ROOM ASSIGNMENT
--- NOTE | 2016-06-19 16:21 | NUR ---
REPORT GIVEN TO ARNEL SCOTTTORCH OPERATOR NOTIFIED
[2016-06-19] MEDS ORDERED: OLANZAPINE20 M1 PO (16:25)
--- NOTE | 2016-06-19 16:50 | NUR ---
ADMISSION NOTE: PT ARRIVED TO FLOOR WITH DISTRIBUTION VIA STRETCHER, A/OX3, 3L NC, SATTNG 98%, PULSE 107, BP, 140/80, TEMP 99.8, RESP 20. DIAPHORETIC, ANXOIUS.ORIENTED TO ROOM, RSTING IN BED IN LOW OOCKED POSITION.
--- NOTE | 2016-06-19 18:19 | Cons- Cardiology ---
General Information and HPI Consulting Request Date of Consult: 06/19/16 Requested By: TOYA ZAVALA PhD,NIYA Campoverde History of Present Illness: Mr. Reeves is a 50 year old male with history of hypertension, sleep apnea, aspiration pneumonia and psychiatric disease. He recently was treated for a multlobar pneumonia and has noted persistent shortness of breath. Today, this shortness of breath became acutely worse and was accompanied by rapid palpitations. The patient presented for evaluation of these symptoms and was noted to have a sinus tachycardia on telemetry and his ECG. There was a question of NSVT but on review of the rhythm strips it appeared to be artifact. This patient does have a minimally productive cough. He also has fever up to 102. There is no orthopnea. He has mentioned a mild precordial chest pressure that has resolved and also complians of mild lightheadedness, palpitations as above and mild nausea. He had a mild abdominal discomfort earlier in the day. He denies leg discomfort or swelling, diarrhea or dysuria. Allergies/Medications Allergies: Coded Allergies: ceftriaxone (fever, rash, eosinophilia 01/16/16) Home Med List: Amlodipine Besylate 10 MG TABLET 1 TAB PO DAILY HTN (Reported) Losartan Potassium 25 MG TABLET 1 TAB PO DAILY HTN (Reported) Olanzapine 20 MG TABLET 1 TAB PO BID SCHIZOAFFECTIVE DISORDER (Reported) Simvastatin (Simvastatin*) 20 MG TABLET 1 TAB PO QPM CHOLESTREOL (Reported) Review of Systems Review of Systems: A review of systems is unremarkable other than the above. 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 Home Who Do You Live With? parent Services at Home: Nursing Primary Language: Nepali, Slovak Smoking Status: Current Everyday Smoker ETOH Use: denies use Illicit Drug Use: denies illicit drug use Functional Ability ADLs Independent: dressing, eating, toileting, bathing. Ambulation: independent IADLs Independent: shopping, housework, finances, food prep, telephone, transportation , medication admin. ECHO Results (as available) Date of last Echo 12/25/15 EF% 65 Exam & Diagnostic Data Vital Signs and I&O Vital Signs Date Time Temp Pulse Resp B/P Pulse O2 O2 Flow FiO2 Ox Delivery Rate 06/19 1723 Nasal 2.0L Cannula 06/19 1650 96 Nasal 3.0L Cannula 06/19 1614 99.8 107 16 143/88 06/19 1443 101.8 06/19 1443 101.8 120 143/88 96 Nasal 3.0L Cannula 06/19 1316 102.7 125 20 148/77 06/19 1313 102.7 06/19 1245 102.7 125 20 148/77 94 Nasal 3.0L Cannula 06/19 1131 101.0 115 18 126/73 95 Nasal 2.0L Cannula 06/19 1102 100.8 120 22 128/72 06/19 1017 100.8 120 22 128/72 96 Nasal 3.0L Cannula 06/19 0948 100.6 06/19 0948 100.6 06/19 0921 101.2 145 22 145/68 96 Nasal 2.0L Cannula 06/19 0908 94 Nasal 2.0L Cannula 06/19 0850 94 Nasal Cannula 06/19 0849 102.8 06/19 0843 102.8 06/19 0832 102.8 139 22 158/95 92 Room Air Intake & Output 06/19 1600 06/19 0800 06/19 0000 06/18 1600 06/18 0800 06/18 0000 Intake Total 200 Output Total Balance 200 Intake, IV 200 Patient 285 lb Weight Physical Exam: General: WD/ WN male in NAD; alert and oriented x 3 HEENT: NC/AT, PERRL, EOMI, clear oropharynx Neck: no JVD, no carotid bruit Heart: tachycardic and regular w/o murmur Lungs: clear bilaterally Abdomen: soft, obese, NT, +ve bowel sounds Extremities: no edema Diagnostic Data EKG Results sinus tachycardia Assessment/Plan Assessment/Plan * This patient has shortness of breath and tachycardia. In consideration of his body habitus he is at risk for a PE. Although no central pulmonary emboli could be seen on his CT angiogram from today, there was a poorly timed bolus and more peripheral emboli cannot be excluded. It should be noted that he is hypoxic to 67 on 2L of supplemental O2. We will begin IV heparin and will obtain a D-dimer and lower extremity ultrasounds due to a high suspicion of peripheral PE. This patient does not appear to be dry, anemic or hyperthyroid and has no current evidence of increased JVD that would be consistent with a cardiac cause of tachycardia. The patient is known to have a normal EF without obvious pericardial effusion on his CT today. We will obtain a repeat echocardiogram at this time. * olanzapine is a drug that is associated with tachycardia. We will have psychiatry evaluate this patient to see if there are any medications that will treat his psychiatric issues that are not known to have tachycardia as a side effect. * Finally, this patient has an elevated WBC count with fever. There is no obvious source of infection and this may well be a viral syndrome. We will obtain blood cultures if the patient spikes a fever and will marcos culture for any sputum production. He does not appear to have a UTI or gastroenteritis but does have a mild cough along with his shortness of breath. A definite infiltrate was not seen on his chest CT however. No antibiotics for now. We will repeat his CBC and if this remains abnormal with accompanying fever will ask for an infectious disease consult. Consideration will also be given to a sinusitis and bronchitis. Consult Acknowledgment - Thank you for your consult request.
[2016-06-19 18:40] VITALS: BP 130/70
--- NOTE | 2016-06-19 20:28 | ULTRASOUND REPORT ---
EXAMINATION: US TRIPLEX LOWER EXTREMITY, BILATERAL CLINICAL INFORMATION: Evaluate for deep vein thrombosis. COMPARISON: None TECHNIQUE: Color-flow triplex imaging with spectral analysis and compression Doppler were performed on the bilateral lower extremities. FINDINGS: Respiratory variation, normal compression and augmented flow are noted throughout the bilateral lower extremities. The visualized common femoral vein, superficial femoral vein, profunda femoral vein, popliteal vein and midcalf peroneal and posterior tibial venous segments show no evidence of deep venous thrombosis. There is no Arreguin's cyst. IMPRESSION: There is no sonographic evidence of deep venous thrombosis involving the bilateral lower extremities.
[2016-06-19 23:02] LABS: PT 12.2 SEC (9.4-12.5)
--- NOTE | 2016-06-19 23:15 | NUR ---
PT TEMP 100.8 APPROX 30 MINS AFTER RECEIVING FLU VACCINE. TEMP AT TIME OF FLU VACCINE WAS 98.0. MD CHESTER NOTIFIED. [place]OLES CULTURES ORDERED.
[2016-06-19 23:30] VITALS: BP 122/70
--- NOTE | 2016-06-19 23:38 | Event Note ---
Event Note Event Note: Patient spiked temperature of 100.8*F, this is roughly 30min after he received Flushot (Afluria) IM. Vitals otherwise stable (except temperature). Panculture ordered. ------
--- NOTE | 2016-06-20 00:59 | Event Note ---
Event Note Event Note: Guiac test on Mr Reeves was Negative, performed by me by the bedside at 0055am on 06/20/16. Test results confirmed with nursing staff Karol as well. Explained this to the patient. I was requested to perform the test as the patient is to get Heparin later.
[2016-06-20 07:47] VITALS: BP 124/76
[2016-06-20 08:28] LABS: ABSOLUTE BASOPHIL COUNT 0 /CUMM (0.0-0.2); ABSOLUTE EOSINOPHIL COUNT 0 /CUMM (0.0-0.7); ABSOLUTE GRANULOCYTE CT 8.5 /CUMM (1.4-6.5); ABSOLUTE LYMPH COUNT 0.8 /CUMM (1.2-3.4); ABSOLUTE MONOCYTE COUNT 0.6 /CUMM (0.10-0.60); BASOPHIL % 0.1 % (0.0-2.0); EOSINOPHIL % 0.2 % (0-5); GRANULOCYTE % 85.6 % (42.2-75.2); MEAN CORPUSCULAR HGB CONC 32.7 G/DL (33.0-37.0); MEAN CORPUSCULAR VOLUME 85.7 FL (80.0-94.0); MEAN PLATELET VOLUME 8.1 FL (7.4-10.4); PLATELET COUNT 199 /CUMM (130-400); RBC DISTRIBUTION WIDTH 15.6 % (11.5-14.5); RED BLOOD CELL CT 4.67 /CUMM (4.70-6.10); WHITE BLOOD CELL COUNT 9.9 /CUMM (4.8-10.8)
[2016-06-20 08:41] LABS: PTT 35 SEC (25-37)
--- NOTE | 2016-06-20 09:24 | PN- Housestaff ---
Subjective Follow-up For: Shortness of breath under evaluation ruled out PE Complaints: chest pain, shortness of breath, abdominal pain, headache Tele-Events Since Last Visit: Normal sinus rhythm with heart rate between 90-106, no any overnight event Subjective: Patient is seen and examined at the bedside. He was complaining of increasing blurry of vision, than before. He was asking what is his chances to have shortness of breath again. He is also complaining of pain in the right lower quadrant of the abdomen. He denies constipation, dysuria, chest pain, nausea, vomiting. Review of Systems Constitutional: Reports: weakness. Denies: chills, diaphoresis, fever. EENTM: Reports: blurred vision, double vision. Cardiovascular: Denies: chest pain, edema, orthopena, palpitations, peripheral edema, syncope. Respiratory: Reports: short of breath. Denies: cough, hemoptysis, sputum production, stridor. Gastrointestinal: Reports: abdominal pain. Denies: bloating, constipation, diarrhea, distention, bowel incontinence, melena, nausea. Genitourinary: Denies: discharge, dysuria, frequency, hematuria, hesitation. Musculoskeletal: Denies: back pain, gout, joint pain, joint swelling, muscle pain. Skin: Denies: no symptoms. Neurological/Psychological: Reports: anxiety, depressed. Objective Last 24 Hrs of Vital Signs/I&O Vital Signs Date Time Temp Pulse Resp B/P Pulse O2 O2 Flow FiO2 Ox Delivery Rate 06/20 1621 99.6 111 20 136/72 93 Nasal 3.0L Cannula 06/20 1600 95 Nasal 3.0L Cannula 06/20 1005 98.6 06/20 0957 94 132/78 06/20 0956 91 132/78 06/20 0800 95 Nasal 3.0L Cannula 06/20 0747 98.5 111 20 124/76 95 06/20 0120 99.0 06/20 0028 99.0 06/20 0000 Nasal 3.0L Cannula 06/19 2330 100.8 112 22 122/70 95 Nasal Cannula 06/19 1840 97.7 109 20 130/70 95 Nasal 3.0L Cannula Intake & Output 06/20 1600 06/20 0800 06/20 0000 Intake Total 800 396 300 Output Total 350 900 200 Balance 450 -504 100 Intake, IV 156 Intake, Oral 800 240 300 Output, Urine 350 900 200 Patient 144.696 kg Weight Physical Exam General Appearance: Alert, Oriented X3, Cooperative, No Acute Distress Skin: No Rashes, No Breakdown HEENT: Atraumatic, PERRLA, EOMI Neck: Supple, No JVD Cardiovascular: Regular Rate, Normal S1, Normal S2 Lungs: Clear to Auscultation Abdomen: Soft, No Tenderness, distended Neurological: Normal Speech Extremities: No Clubbing, No Cyanosis, No Edema Vascular: Normal Pulses Assessment/Plan Assessment: This is a 50-year-old gentleman with a past medical history significant for hypertension, hyperlipidemia, schizoaffective disorder, previous admission at [facility] in January 2016 for multilobar pneumonia requiring prolonged intubation and a subsequent tracheostomy presented to the emergency room with the chief complaint of shortness of breath Chest x-ray-no acute cardiopulmonary abnormality Venous Doppler study-no evidence of DVT CTA chest-poor study because of the delayed bolus timing but there is no evidence of pulmonary embolus Problem list Shortness of breath Fever under evaluation ? Neuroleptic malignant syndrome Hypertension Hyperlipidemia Schizoaffective disorder History of multilobar pneumonia with prolonged intubation required tracheostomy Vital signs-temperature 90 9.0, pulse 111, respiratory rate 20, blood pressure 122/70, SPO2 95% Plan - * D-dimer was done which come back [id number] * We will follow cardiology recommendation * We'll continue IV heparin * We will follow the echocardiogram * We'll follow the blood culture * According to the psychiatrist. We will check a CK level and they think it can be a neuroleptic malignant syndrome, because patient was taking large dose of Zyprexa, which can cause tachycardia, we decreased the dose of Zyprexa from 20 milligrams twice a day to 15 mgs twice a day. * Diet-heart healthy diet * DVT prophylaxis-ALP S/heparin * CODE STATUS-full code Problem List: 1. Schizoaffective disorder 2. Fever 3. Drug induced fever Pain Ratin Pain Location: Headache, abdominal pain Pain Goal: Remain pain free Pain Plan: mild Tomorrow's Labs & Rationales: cbc,bep
--- NOTE | 2016-06-20 11:39 | PN- Cardiology ---
Subjective Subjective: The patient was noted to have a fever overnight he has been started on IV heparin for possible pulmonary embolism given the poor quality CT angiogram. No current chest pain. Shortness of breath improving. No palpitations. No diaphoresis. Objective Vital Signs and I&Os Vital Signs Date Time Temp Pulse Resp B/P Pulse O2 O2 Flow FiO2 Ox Delivery Rate 06/20 1005 98.6 06/20 0957 94 132/78 06/20 0956 91 132/78 06/20 0800 95 Nasal 3.0L Cannula 06/20 0747 98.5 111 20 124/76 95 06/20 0120 99.0 06/20 0028 99.0 06/20 0000 Nasal 3.0L Cannula 06/19 2330 100.8 112 22 122/70 95 Nasal Cannula 06/19 1840 97.7 109 20 130/70 95 Nasal 3.0L Cannula 06/19 1723 Nasal 2.0L Cannula 06/19 1650 96 Nasal 3.0L Cannula 06/19 1614 99.8 107 16 143/88 06/19 1600 96 Nasal 3.0L Cannula 06/19 1443 101.8 06/19 1443 101.8 120 143/88 96 Nasal 3.0L Cannula 06/19 1316 102.7 125 20 148/77 06/19 1313 102.7 06/19 1245 102.7 125 20 148/77 94 Nasal 3.0L Cannula Intake & Output 06/20 1600 06/20 0800 06/20 0000 06/19 1600 06/19 0800 06/19 0000 Intake Total 396 300 200 Output Total 900 200 Balance -504 100 200 Intake, IV 156 200 Intake, Oral 240 300 Output, Urine 900 200 Patient 319 lb 285 lb Weight Physical Exam: Gen: NAD HEENT: normal Lungs: clear to auscultation, normal resp. effort Heart: RRR, S1, S2, no murmurs Abdomen: Soft, nontender, no masses Extremities: No clubbing, cyanosis, or edema. Neuro: Alert and oriented x 3, cranial nerves intact Current Medications: Current Medications Sig/Earnest Start time Last Medication Dose Route Stop Time Status Admin Acetaminophen 650 MG Q6P PRN 06/19 1330 AC 06/19 PO 2250 Acetaminophen/ 1 TAB Q6P PRN 06/19 1330 AC Hydrocodone Bitart PO Amlodipine Besylate 10 MG DAILY 06/20 1000 AC 06/20 PO 0957 Atorvastatin Calcium 10 MG 1700 06/19 1700 AC 06/19 PO 2251 Heparin Sodium 5,000 UNIT ONCE ONE 06/20 0945 DC 06/20 (Porcine) IV 06/20 0946 0955 Heparin Sodium 25,000 UNIT Q24H 06/19 1900 AC 06/20 (Porcine) IV 0105 Sodium Chloride 500 ML Heparin Sodium 0 .STK-MED ONE 06/19 1431 DC (Porcine) .ROUTE Heparin Sodium 5,000 UNIT Q8 06/19 1400 DC 06/19 (Porcine) SC 1432 Ibuprofen 800 MG ONCE ONE 06/19 1315 DC 06/19 PO 06/19 1316 1313 Ibuprofen 0 .STK-MED ONE 06/19 1313 DC PO Influenza Virus 0.5 ML ONCE ONE 06/19 1745 DC 06/19 Vaccine IM 06/19 1746 2251 Lorazepam 2 MG .STK-MED ONE 06/20 0024 DC IM 06/20 0025 Lorazepam 1 MG ONE ONE 06/19 2315 DC 06/20 IV 06/19 2316 0027 Lorazepam 1 MG ONCE ONE 06/19 1430 DC 06/19 IV 06/19 1431 1432 Lorazepam 0 .STK-MED ONE 06/19 1429 DC .ROUTE Losartan Potassium 25 MG DAILY 06/20 1000 CAN PO Losartan Potassium 0 .STK-MED ONE 06/19 1316 DC PO Losartan Potassium 25 MG DAILY 06/19 1310 AC 06/20 PO 0956 Magnesium Sulfate 0 .STK-MED ONE 06/19 1413 DC .ROUTE Magnesium Sulfate 2 GM ONCE ONE 06/19 1330 DC 06/19 Dextrose/Water 250 ML IV 06/19 1729 1423 Olanzapine 20 MG BID 06/19 2200 AC 06/20 PO 0956 Olanzapine 10 MG Q6 06/19 1800 CAN PO Olanzapine 0 .STK-MED ONE 06/19 1316 DC PO Olanzapine 10 MG DAILY 06/19 1310 DC 06/19 PO 1316 Oxycodone HCl 10 MG Q6P PRN 06/19 1330 AC PO Sodium Chloride 1,000 ML ONCE ONE 06/19 1345 DC 06/19 IV 06/19 2024 1439 Results Last 48 Hrs of Labs/Mics: Laboratory Tests 06/20/16 0615: Anion Gap 7, Estimated GFR > 60, BUN/Creatinine Ratio 18.6, Magnesium 2.1, APTT 35, CBC w Diff NO MAN DIFF REQ, RBC 4.67 L, MCV 85.7, MCH 28.0, RDW 15.6 H, MPV 8.1, Gran % 85.6 H, Lymphocytes % 8.1 L, Monocytes % 6.0, Eosinophils % 0.2, Basophils % 0.1, Absolute Granulocytes 8.5 H, Absolute Lymphocytes 0.8 L, Absolute Monocytes 0.6, Absolute Eosinophils 0, Absolute Basophils 0, PUBS MCHC 32.7 L 06/19/16 2238: Troponin I < 0.01, PT 12.2, INR 1.16 06/19/16 1430: Troponin I < 0.01 06/19/16 1259: Urinalysis LIGHT H, Urine Color YEL, Urine Clarity CLEAR, Urine pH 6.5, Ur Specific [place] 1.010, Urine Protein 100 H, Urine Ketones NEG, Urine Nitrite NEG, Urine Bilirubin NEG, Urine Urobilinogen 0.2, Ur Leukocyte Esterase NEG, Ur Microscopic SEDIMENT EXAMINED, Urine RBC 1-3, Urine WBC RARE, Ur Epithelial Cells RARE, Urine Hemoglobin NEG, Urine Glucose NEG 06/19/16 1135: Lactic Acid 1.8 06/19/16 1005: pH 7.43, pCO2 39, pO2 67 L, HCO3 25, ABG O2 Sat (Measured) 93.0 L, Carboxyhemoglobin 1.4 L, O2 Concentration % 2L, O2 Delivery Method NC, Phlebotomy Draw Site LEFT RADIAL 06/19/16 0840: Lactic Acid 2.4 H 06/19/16 0840: Anion Gap 11, Estimated GFR > 60, BUN/Creatinine Ratio 15.0, Glucose 137 H, Calcium 9.3, Magnesium 1.4 L, Total Bilirubin 0.8, Direct Bilirubin 0.5 H, AST 12 L, ALT 30, Alkaline Phosphatase 99, Troponin I < 0.01, Ych-[id number] Pept 30.1, Total Protein 7.3, Albumin 4.0, Globulin 3.3, Albumin/Globulin Ratio 1.2, Amylase 46, Lipase 49, TSH 0.976, Free T4 1.15, CBC w Diff MAN DIFF ORDERED , RBC 5.01, MCV 84.7, MCH 27.8, RDW 15.0 H, MPV 7.7, Gran % 93.1 H, Lymphocytes % 3.3 L, Monocytes % 3.4, Eosinophils % 0.2, Basophils % 0 L, Absolute Granulocytes 15.4 H, Segmented Neutrophils 80 H, Band Neutrophils 4, Absolute Lymphocytes 0.5 L, Lymphocytes 9 L, Monocytes 7, Absolute Monocytes 0.6, Absolute Eosinophils 0, Absolute Basophils 0, Platelet Estimate VERIFIED BY SMEAR, Normocytic RBCs VERIFIED, Normochromic RBCs VERIFIED, PUBS MCHC 32.9 L, Serum Alcohol < 10.0 Recent Imaging Studies: Low extremity doppler: There is no sonographic evidence of deep venous thrombosis involving the bilateral lower extremities. CTA chest: Delayed bolus timing. No central pulmonary embolism. Platelike opacities scattered within both lungs most suggestive of atelectasis or scar. No consolidation. No pleural effusion. No evidence of adenopathy. Assessment/Plan Assessment/Plan Assessment: 1. Shortness of breath 2. Fever 3. No pneumonia on CTA. No central pulmonary embolism, however distal pulmonary embolism could not be ruled out because of delayed bolus timing. Plan: * Check d-dimer * Echocardiogram pending * Monitor on telemetry * Follow-up blood cultures * Continue IV heparin for now. Continue telemetry? Yes
--- NOTE | 2016-06-20 14:17 | Cons- Psychiatry ---
Psychiatric Consult Date of Consult: 06/20/16 Reason for Consult: "hx of schizoaffective disorder and anxiety, tachycardia could be due to olanzapine" History of Present Illness: 50yoMwith a past medical history significant for hypertension, hyperlipidemia, schizoaffective disorder, previous admission at [facility] in January 2016 for multilobar pneumonia requiring prolonged intubation and a subsequent tracheostomy presented to the emergency room with the chief complaint of shortness of breath. Patient states that he woke up this morning and experienced shortness of breath with accompanying fevers. While in the emergency room at telemetry strip was suspicious of ventricular tachycardia which was brief and the patient was awake and alert through the entire event. This was seen and evaluated by Dr. Cameron who thought this was secondary to lead misplacement. Pt continued to complain of shortness of breath. Later in the day, seen by cards , pt has minimally productive cough. He also has fever up to 102. There is no orthopnea. He has mentioned a mild precordial chest pressure that has resolved and also complians of mild lightheadedness, palpitations as above and mild nausea. He had a mild abdominal discomfort earlier in the day. He denies leg discomfort or swelling, diarrhea or dysuria. Seen again by cards on 06/20, this morning, per notes The patient was noted to have a fever overnight he has been started on IV heparin for possible pulmonary embolism given the poor quality CT angiogram. No current chest pain. Shortness of breath improving. No palpitations. No diaphoresis. On interview this morning, pt notes that a little anxious as feeling ill and concerned that will lead to another prolonged hospitalization such as one he had in Jan 2016. He notes that overall mood is "OK" other than anxiety around illness. He denies any recent SI or HI. Denies any AVHs, which he has had in the past, and notes some mild paranoia. Has been complaint with medication. He is seen at [facility] in [place] by Dr Moreno and Avelino Del Toro for therapy. He was supposed to be seen last but missed the appointment 06/11. He was last seen 1-2 months ago. Feels that schizoaffective sx stable and unchanged recently. Last SA was september years ago. Hx of 6-7 overdoses but none recently. Feeling good overall from mental health standpoint. Feels meds are helpful. Allergies: Coded Allergies: ceftriaxone (fever, rash, eosinophilia 01/16/16) Current Medications: Current Medications Sig/Earnest Start time Last Medication Dose Route Stop Time Status Admin Acetaminophen 650 MG Q6P PRN 06/19 1330 AC 06/19 PO 2250 Acetaminophen/ 1 TAB Q6P PRN 06/19 1330 AC Hydrocodone Bitart PO Amlodipine Besylate 10 MG DAILY 06/20 1000 AC 06/20 PO 0957 Atorvastatin Calcium 10 MG 1700 06/19 1700 AC 06/19 PO 2251 Heparin Sodium 5,000 UNIT ONCE ONE 06/20 0945 DC 06/20 (Porcine) IV 06/20 0946 0955 Heparin Sodium 25,000 UNIT Q24H 06/19 1900 AC 06/20 (Porcine) IV 0105 Sodium Chloride 500 ML Heparin Sodium 0 .STK-MED ONE 06/19 1431 DC (Porcine) .ROUTE Heparin Sodium 5,000 UNIT Q8 06/19 1400 DC 06/19 (Porcine) SC 1432 Influenza Virus 0.5 ML ONCE ONE 06/19 1745 DC 06/19 Vaccine IM 06/19 1746 2251 Lorazepam 2 MG .STK-MED ONE 06/20 0024 DC IM 06/20 0025 Lorazepam 1 MG ONE ONE 06/19 2315 DC 06/20 IV 06/19 2316 0027 Lorazepam 1 MG ONCE ONE 06/19 1430 DC 06/19 IV 06/19 1431 1432 Lorazepam 0 .STK-MED ONE 06/19 1429 DC .ROUTE Losartan Potassium 25 MG DAILY 06/20 1000 CAN PO Losartan Potassium 25 MG DAILY 06/19 1310 AC 06/20 PO 0956 Magnesium Sulfate 2 GM ONCE ONE 06/19 1330 DC 06/19 Dextrose/Water 250 ML IV 06/19 1729 1423 Olanzapine 20 MG BID 06/19 2200 AC 06/20 PO 0956 Olanzapine 10 MG Q6 06/19 1800 CAN PO Olanzapine 10 MG DAILY 06/19 1310 DC 06/19 PO 1316 Oxycodone HCl 10 MG Q6P PRN 06/19 1330 AC PO Sodium Chloride 1,000 ML ONCE ONE 06/19 1345 DC 06/19 IV 06/19 2024 1439 Past History Past Medical History Neurological: TIA EENT: NONE Cardiovascular: hypertension, hyperlipidemia Respiratory: asthma Gastrointestinal: NONE Hepatic: NONE Renal: NONE Musculoskeletal: fracture, (ANKLE) Psychiatric: alcohol dependence, schizo affective disorder Endocrine: NONE Blood Disorders: NONE Cancer(s): NONE TAG MARKER/Reproductive: NONE Past Surgical History Surgical History: ANKLE FX/SX Psychosocial History Strengths/Capabilities: Supportive family Engaged in treatment; medication compliant Asking for help Desire to feel better Physical Limitations (Interventions): None identified Psychiatric Treatment History Psych Treatment Psychiatric Treatment Yes Inpatient Treatment Yes ( 2014 and 2014, ) Outpatient Treatment Yes Location of Treatment [facility] in [place] by Dr. Moreno Reason for Treatment Schizoaffective disorder Dates of Treatment jan 2016 until present Response to Treatment good, decrease in psychotic and mood sx Diagnosis: Schizoaffective d/o Risk Factors: high anxiety/distress, history of suicide atmpts, SA/MH hospitalized, male Substance Use/Abuse History Drug Use/Abuse Substances Used/Abused Yes Substance Used/Abused Other (list in comments) (cocaine, mj, PO in the past) First Use 16-18yo Last Used years ago; last alcohol weeks ago, had recent replase How much used/taken varying amounts, pt could not specify How often daily EtOH use in the past, not recent For how long years Route of use PO, IN Substance Abuse Treatment Substance Abuse Treatment Past Substance Abuse [place] No Assessment/Plan Mental Status Orientation: Current situation, Person, Place, Person, Place, Situation Affect: Appropriate (concerned) Speech: Normal Neuro-vegetative: WNL Mental Status Exam: Appears younger than stated age in hospital bed with blankets pulled up to just under head. Cooperative behavior, good, appropriate eye contact. Nl speech rate and prosody. No psychomotor retardation or agitation. Mood worried Affect cocnerned, slightly anxious but appropriately so, full range, appropriate, non- liable. Linear and goal directed thought process. Denies SI or HI. Does not appear to be responding to internal stimuli. Denies AVHs, + paranoia recently but denies currently, denies delusions. I/J: limited; pt only has 6th grade education Lab Results: Laboratory Tests 06/20 06/19 06/19 0615 2238 1430 Chemistry Sodium (137 - 145 mmol/L) 139 Potassium (3.5 - 5.1 mmol/L) 4.0 Chloride (98 - 107 mmol/L) 99 Carbon Dioxide (22 - 30 mmol/L) 33 H Anion Gap (5 - 16) 7 BUN (9 - 20 mg/dL) 13 Creatinine (0.7 - 1.2 mg/dL) 0.7 Estimated GFR (>60 ml/min) > 60 BUN/Creatinine Ratio (7 - 25 %) 18.6 Magnesium (1.6 - 2.3 mg/dL) 2.1 Troponin I (<0.11 ng/ml) < 0.01 < 0.01 Coagulation PT (9.4 - 12.5 SEC) 12.2 INR (0.90 - 1.17) 1.16 APTT (25 - 37 SEC) 35 Hematology CBC w Diff NO MAN DIFF REQ WBC (4.8 - 10.8 /CUMM) 9.9 RBC (4.70 - 6.10 /CUMM) 4.67 L Hgb (14.0 - 18.0 G/DL) 13.1 L Hct (42 - 52 %) 40.0 L MCV (80.0 - 94.0 FL) 85.7 MCH (27.0 - 31.0 PG) 28.0 RDW (11.5 - 14.5 %) 15.6 H Plt Count (130 - 400 /CUMM) 199 MPV (7.4 - 10.4 FL) 8.1 Gran % (42.2 - 75.2 %) 85.6 H Lymphocytes % (20.5 - 51.1 %) 8.1 L Monocytes % (1.7 - 9.3 %) 6.0 Eosinophils % (0 - 5 %) 0.2 Basophils % (0.0 - 2.0 %) 0.1 Absolute Granulocytes (1.4 - 6.5 /CUMM) 8.5 H Absolute Lymphocytes (1.2 - 3.4 /CUMM) 0.8 L Absolute Monocytes (0.10 - 0.60 /CUMM) 0.6 Absolute Eosinophils (0.0 - 0.7 /CUMM) 0 Absolute Basophils (0.0 - 0.2 /CUMM) 0 PUBS MCHC (33.0 - 37.0 G/DL) 32.7 L 06/19 06/19 06/19 1259 1135 1005 Blood Gas pH (7.35 - 7.45 PH) 7.43 pCO2 (35 - 45 TORR) 39 pO2 (80 - 100 TORR) 67 L HCO3 (21 - 28 MEQ/L) 25 ABG O2 Sat (Measured) (>96.0 %) 93.0 L Carboxyhemoglobin (1.5 - 5.0 %) 1.4 L O2 Concentration % 2L O2 Delivery Method NC Chemistry Lactic Acid (0.7 - 2.1 mmol/L) 1.8 Miscellaneous Phlebotomy Draw Site LEFT RADIAL Urines Urinalysis LIGHT H Urine Color (YEL,AMB,STR) YEL Urine Clarity (CLEAR) CLEAR Urine pH (5.0 - 8.0) 6.5 Ur Specific [place] (1.001 - 1.035) 1.010 Urine Protein (NEG,<30 MG/DL) 100 H Urine Ketones (NEG) NEG Urine Nitrite (NEG) NEG Urine Bilirubin (NEG) NEG Urine Urobilinogen (0.1 - 1.0 EU/dl) 0.2 Ur Leukocyte Esterase (NEG) NEG Ur Microscopic SEDIMENT EXAMINED Urine RBC (0 - 5 /HPF) 1-3 Urine WBC (0 - 2 /HPF) RARE Ur Epithelial Cells (NONE,FEW) RARE Urine Hemoglobin (NEG) NEG Urine Glucose (N MG/DL) NEG 06/19 06/19 0840 0840 Chemistry Sodium (137 - 145 mmol/L) 135 L Potassium (3.5 - 5.1 mmol/L) 4.1 Chloride (98 - 107 mmol/L) 98 Carbon Dioxide (22 - 30 mmol/L) 27 Anion Gap (5 - 16) 11 BUN (9 - 20 mg/dL) 12 Creatinine (0.7 - 1.2 mg/dL) 0.8 Estimated GFR (>60 ml/min) > 60 BUN/Creatinine Ratio (7 - 25 %) 15.0 Glucose (65 - 99 mg/dL) 137 H Lactic Acid (0.7 - 2.1 mmol/L) 2.4 H Calcium (8.4 - 10.2 mg/dL) 9.3 Magnesium (1.6 - 2.3 mg/dL) 1.4 L Total Bilirubin (0.2 - 1.3 mg/dL) 0.8 Direct Bilirubin (< 0.4 mg/dL) 0.5 H AST (17 - 59 U/L) 12 L ALT (21 - 72 U/L) 30 Alkaline Phosphatase (< 127 U/L) 99 Troponin I (<0.11 ng/ml) < 0.01 [id number] Pept (<125 pg/mL) 30.1 Total Protein (6.3 - 8.2 g/dL) 7.3 Albumin (3.5 - 5.0 g/dL) 4.0 Globulin (1.9 - 4.2 gm/dL) 3.3 Albumin/Globulin Ratio (1.1 - 2.2 %) 1.2 Amylase (30 - 110 U/L) 46 Lipase (23 - 300 U/L) 49 TSH (0.270 - 4.200 uIU/mL) 0.976 Free T4 (0.64 - 1.79 ng/dL) 1.15 Hematology CBC w Diff MAN DIFF ORDERED WBC (4.8 - 10.8 /CUMM) 16.5 H RBC (4.70 - 6.10 /CUMM) 5.01 Hgb (14.0 - 18.0 G/DL) 13.9 L Hct (42 - 52 %) 42.4 MCV (80.0 - 94.0 FL) 84.7 MCH (27.0 - 31.0 PG) 27.8 RDW (11.5 - 14.5 %) 15.0 H Plt Count (130 - 400 /CUMM) 258 MPV (7.4 - 10.4 FL) 7.7 Gran % (42.2 - 75.2 %) 93.1 H Lymphocytes % (20.5 - 51.1 %) 3.3 L Monocytes % (1.7 - 9.3 %) 3.4 Eosinophils % (0 - 5 %) 0.2 Basophils % (0.0 - 2.0 %) 0 L Absolute Granulocytes (1.4 - 6.5 /CUMM) 15.4 H Segmented Neutrophils (42.2 - 75.2 %) 80 H Band Neutrophils (0.0 - 5.0 %) 4 Absolute Lymphocytes (1.2 - 3.4 /CUMM) 0.5 L Lymphocytes (20.5 - 51.1 %) 9 L Monocytes (1.7 - 9.3 %) 7 Absolute Monocytes (0.10 - 0.60 /CUMM) 0.6 Absolute Eosinophils (0.0 - 0.7 /CUMM) 0 Absolute Basophils (0.0 - 0.2 /CUMM) 0 Platelet Estimate (ADEQUATE) VERIFIED BY SMEAR Normocytic RBCs VERIFIED Normochromic RBCs VERIFIED PUBS MCHC (33.0 - 37.0 G/DL) 32.9 L Toxicology Serum Alcohol (<10 MG/DL) < 10.0 Diffential Diagnosis: Schizoaffective Disorder Unspecified Anxiety disorder r/o NMS r/o ID Impression: Pt with hx of schizoaffective disorder now with stable mood and marked decrease in psychotic sx with concern by primary team that tachycardia may be secondary to zyprexa. Pt is currently taking 30mg of zyprexa which is above the recommended 20mg/day dosing as the safety and effectiveness of doses above 20 mg /day have not been evaluated in clinical trials. In up to 10% of pts taking zyprexa, tachycardia can occur with less than 0.1% of pt have VT or Vfib. Increase dosages of zyprexa do put him at higher risk for these side effects, though given reports of SOB, hypoxia, temperature, and leukocytosis more in line with concern for NMS. However, pt only has temperature and mild leukocytosis w/o stiffness, rigidity or AMS making NMS less likely. It is more likely fever, SOB, and leukocytosis represents PE vs Infection. Provisional Treatment Plan: - Please check CK level - Please monitor closely for AMS as makes NMS more likely - As pt taking larger than recommended dose of zyprexa and could contribute to tachycardia, can reduce from 20mg BID to 15mg BID, if tolerates without resurgance of psychotic sx and can reduce further if tachycardia abates. - Psych consult will continue to follow. Thank you for the consult. Thank you for the consult.
[2016-06-20 16:10] LABS: PTT 42 SEC (25-37)
[2016-06-20 16:21] VITALS: BP 136/72
[2016-06-20 22:00] VITALS: BP 100/80
[2016-06-20 23:13] LABS: PTT 70 SEC (25-37)
--- NOTE | 2016-06-21 08:25 | PN- Housestaff ---
Subjective Follow-up For: Shortness of breath Schizoaffective disorder Tele-Events Since Last Visit: Sinus rhythm, sinus tachycardia Heart rate 93-110 No overnight events Subjective: Patient was seen and examined this morning, he denied any chest pain, shortness of breath, he is on 3 L oxygen with saturation 94%. Denied cough. He reported abdominal pain for less than 20 minutes at midnight last night, denied nausea vomiting. Had bowel movement yesterday of regular normal consistency. Patient denied any urinary symptoms. Review of Systems Constitutional: Reports: see HPI. Objective Last 24 Hrs of Vital Signs/I&O Vital Signs Date Time Temp Pulse Resp B/P Pulse O2 O2 Flow FiO2 Ox Delivery Rate 06/21 0947 110 100/76 06/21 0947 110 100/76 06/21 0843 98.6 110 20 100/76 94 Nasal Cannula 06/21 0800 Nasal 3.0L Cannula 06/21 0000 92 Nasal 3.0L Cannula 06/20 2200 99.0 109 20 100/80 92 Nasal 3.0L Cannula 06/20 1621 99.6 111 20 136/72 93 Nasal 3.0L Cannula 06/20 1600 95 Nasal 3.0L Cannula Intake & Output 06/21 1600 06/21 0800 06/21 0000 Intake Total 200 200 Output Total Balance 200 200 Intake, Oral 200 200 Physical Exam General Appearance: Alert, Oriented X3, Cooperative, No Acute Distress Skin: No Rashes Cardiovascular: Regular Rate, Normal S1, Normal S2, No Murmurs Lungs: Clear to Auscultation, Normal Air Movement Abdomen: Normal Bowel Sounds, Soft, No Tenderness Neurological: Normal Gait, Normal Speech, Strength at 5/5 X4 Ext, Normal Tone, Sensation Intact, Cranial Nerves 3-12 NL, Reflexes 2+ Extremities: No Clubbing, No Cyanosis, No Edema, Normal Pulses Assessment/Plan Assessment: This is a 50-year-old gentleman with a past medical history significant for hypertension, hyperlipidemia, schizoaffective disorder, previous admission at [facility] in January 2016 for multilobar pneumonia requiring prolonged intubation and a subsequent tracheostomy presented to the emergency room with the chief complaint of shortness of breath Chest x-ray-no acute cardiopulmonary abnormality Venous Doppler study-no evidence of DVT CTA chest-poor study because of the delayed bolus timing but there is no evidence of pulmonary embolus Problem list Shortness of breath Fever under evaluation ? Neuroleptic malignant syndrome Hypertension Hyperlipidemia Schizoaffective disorder History of multilobar pneumonia with prolonged intubation required tracheostomy Plan - * D-dimer was elevated, bilateral venous Doppler lower extremity and chest CT a were negative for embolism * Cardiac consultation was obtained, thanks for recommendation * Continue IV heparin * Echocardiogram pending * Follow-up cultures * According to the psychiatrist. Continue Zyprexa 15 mgs twice a day. * Diet-heart healthy diet * DVT prophylaxis-ALP S/heparin IV * CODE STATUS-full code Problem List: 1. Schizoaffective disorder 2. Tachycardia Pain Ratin Pain Location: n/a Pain Goal: Pain 4 or less Pain Plan: Mild pain pathway Tomorrow's Labs & Rationales: CBC, CMP
[2016-06-21 08:43] VITALS: BP 100/76
[2016-06-21 12:57] LABS: PTT 62 SEC (25-37)
--- NOTE | 2016-06-21 14:15 | PN- Cardiology ---
Subjective Subjective: The patient continues to be short of breath. Still requiring 3 L of oxygen. He continues to have intermittent sinus tachycardia with heart rate in the 120s to the 130s. No chest pain. No palpitations. No diaphoresis. Objective Vital Signs and I&Os Vital Signs Date Time Temp Pulse Resp B/P Pulse O2 O2 Flow FiO2 Ox Delivery Rate 06/21 0947 110 100/76 06/21 0947 110 100/76 06/21 0843 98.6 110 20 100/76 94 Nasal Cannula 06/21 0800 Nasal 3.0L Cannula 06/21 0000 92 Nasal 3.0L Cannula 06/20 2200 99.0 109 20 100/80 92 Nasal 3.0L Cannula 06/20 1621 99.6 111 20 136/72 93 Nasal 3.0L Cannula 06/20 1600 95 Nasal 3.0L Cannula Intake & Output 06/21 1600 06/21 0800 06/21 0000 06/20 1600 06/20 0800 06/20 0000 Intake Total 200 200 800 396 300 Output Total 350 900 200 Balance 200 200 450 -504 100 Intake, IV 156 Intake, Oral 200 200 800 240 300 Output, Urine 350 900 200 Patient 319 lb Weight Physical Exam: Gen: NAD HEENT: normal Lungs: clear to auscultation, normal resp. effort Heart: RRR, S1, S2, no murmurs Abdomen: Soft, nontender, no masses Extremities: No clubbing, cyanosis, or edema. Neuro: Alert and oriented x 3, cranial nerves intact Current Medications: Current Medications Sig/Earnest Start time Last Medication Dose Route Stop Time Status Admin Acetaminophen 650 MG Q6P PRN 06/19 1330 AC 06/19 PO 2250 Acetaminophen/ 1 TAB Q6P PRN 06/19 1330 AC 06/21 Hydrocodone Bitart PO 1234 Amlodipine Besylate 10 MG DAILY 06/20 1000 AC 06/21 PO 0947 Atorvastatin Calcium 10 MG 1700 06/19 1700 AC 06/20 PO 1608 Heparin Sodium 25,000 UNIT .STK-MED ONE 06/21 0336 DC (Porcine) IV 06/21 0337 Heparin Sodium 5,000 UNIT ONCE ONE 06/20 1700 DC 06/20 (Porcine) IV 06/20 1701 1655 Heparin Sodium 25,000 UNIT Q24H 06/19 1900 AC 06/21 (Porcine) IV 0300 Sodium Chloride 500 ML Lorazepam 0.5 MG ONE ONE 06/20 1545 DC 06/20 PO 06/20 1546 1608 Losartan Potassium 25 MG DAILY 06/19 1310 AC 06/21 PO 0947 Olanzapine 15 MG BID 06/20 2200 AC 06/21 PO 0947 Olanzapine 20 MG BID 06/19 2200 DC 06/20 PO 0956 Oxycodone HCl 10 MG Q6P PRN 06/19 1330 AC 06/21 PO 0630 Results Last 48 Hrs of Labs/Mics: Laboratory Tests 06/21/16 1150: APTT 62 H 06/20/16 2256: APTT 70 H 06/20/16 1452: D-Dimer 2745 H 06/20/16 1452: APTT 42 H 06/20/16 0615: Anion Gap 7, Estimated GFR > 60, BUN/Creatinine Ratio 18.6, Magnesium 2.1, Creatine Kinase 131, APTT 35, CBC w Diff NO MAN DIFF REQ, RBC 4.67 L, MCV 85.7, MCH 28.0, RDW 15.6 H, MPV 8.1, Gran % 85.6 H, Lymphocytes % 8.1 L, Monocytes % 6.0, Eosinophils % 0.2, Basophils % 0.1, Absolute Granulocytes 8.5 H, Absolute Lymphocytes 0.8 L, Absolute Monocytes 0.6, Absolute Eosinophils 0, Absolute Basophils 0, PUBS MCHC 32.7 L 06/19/16 2238: Troponin I < 0.01, PT 12.2, INR 1.16 06/19/16 1430: Troponin I < 0.01 Assessment/Plan Assessment/Plan Assessment: 1. Shortness of breath 2. Fever 3. No central pulmonary embolism on CTA, however distal pulmonary embolism could not be ruled out because of delayed bolus timing. Plan: * The persistent sinus tachycardia, hypoxia, and significantly elevated d-dimer are concerning for the possibility of distal pulmonary embolism. The CTA unfortunately could not rule out a distal pulmonary embolism because of delayed plus timing. * Continue IV heparin for now. * Echocardiogram pending. * VQ scan to rule out distal pulmonary embolism. Continue telemetry? Yes
[2016-06-21 16:16] VITALS: BP 126/82
[2016-06-22 00:07] VITALS: BP 102/90
[2016-06-22 01:00] LABS: PTT 73 SEC (25-37)
--- NOTE | 2016-06-22 07:16 | PN- Housestaff ---
Subjective Follow-up For: Shortness of breath Schizoaffective disorder Tele-Events Since Last Visit: Sinus rhythm, sinus tachycardia heart rate 90-110 no events Subjective: Patient was seen and examined this morning, no overnight events reported by the nurse for the patient vital signs are stable. He complained of dry cough that has been going on for a month, denied chest pain, abdominal pain, urinary symptoms. Patient is scheduled for VQ scan this morning. Review of Systems Constitutional: Reports: see HPI. Objective Last 24 Hrs of Vital Signs/I&O Vital Signs Date Time Temp Pulse Resp B/P Pulse O2 O2 Flow FiO2 Ox Delivery Rate 06/22 1533 98.3 94 18 122/78 93 Room Air 06/22 0944 95 142/84 06/22 0944 95 142/84 06/22 0813 98.3 95 18 142/84 95 Nasal 2.0L Cannula 06/22 0800 95 Nasal 2.0L Cannula 06/22 0007 98.4 94 20 102/90 90 Nasal Cannula 06/22 0000 93 Nasal 2.0L Cannula Intake & Output 06/22 1600 06/22 0800 06/22 0000 Intake Total 2214.4 240 2072.8 Output Total Balance 2214.4 240 2072.8 Intake, IV 414.4 392.8 Intake, Oral 9237 176 5395 Physical Exam General Appearance: Alert, Oriented X3, Cooperative, No Acute Distress Skin: No Rashes HEENT: Atraumatic, PERRLA, EOMI, Mucous Membr. moist/pink Neck: Supple Cardiovascular: Regular Rate, Normal S1, Normal S2, No Murmurs Lungs: Clear to Auscultation, Normal Air Movement Abdomen: Normal Bowel Sounds, Soft, No Tenderness Neurological: Normal Gait, Normal Speech, Strength at 5/5 X4 Ext, Normal Tone, Sensation Intact, Cranial Nerves 3-12 NL, Reflexes 2+ Extremities: No Clubbing, No Cyanosis, No Edema, Normal Pulses Assessment/Plan Assessment: This is a 50-year-old gentleman with a past medical history significant for hypertension, hyperlipidemia, schizoaffective disorder, previous admission at [facility] in January 2016 for multilobar pneumonia requiring prolonged intubation and a subsequent tracheostomy presented to the emergency room with the chief complaint of shortness of breath Chest x-ray-no acute cardiopulmonary abnormality Venous Doppler study-no evidence of DVT CTA chest-poor study because of the delayed bolus timing but there is no evidence of pulmonary embolus V/Q scan low probability for PE Problem list Shortness of breath Fever under evaluation ? Neuroleptic malignant syndrome Hypertension Hyperlipidemia Schizoaffective disorder History of multilobar pneumonia with prolonged intubation required tracheostomy Plan - * Troponin and EKG negative * D-dimer was elevated, bilateral venous Doppler lower extremity and chest CT a were negative for embolism * VQ scan today revealed very low possibility for pulmonary embolism * Patient is saturating well on room air 94% * Continue IV heparin * Echocardiogram 06/22 CONCLUSIONS 1. Normal EF of 60%. 2. No significant valvular disease. * cultures remain negative * According to the psychiatrist. Continue Zyprexa 15 mgs twice a day. * Diet-heart healthy diet * DVT prophylaxis-ALP S/heparin IV * CODE STATUS-full code Problem List: 1. Leukocytosis 2. Schizoaffective disorder Pain Ratin Pain Location: None Pain Goal: Pain 4 or less Pain Plan: Mild pain pathway Tomorrow's Labs & Rationales: None
[2016-06-22 08:13] VITALS: BP 142/84
--- NOTE | 2016-06-22 08:15 | ECHOCARDIOGRAM REPORT ---
DEISI EMMANUEL Age: 50 : 1965 Gender: M Exam Date: 06/21/2016 09:54 Exam Location: [place] Ht (in): 75 Wt (lb): 285 BSA: 2.66 BP: 100 / 80 Ordering Physician: MIRACLE GALINDO M Referring Physician: Kar Cameron MD, PhD Technologist: Ruchi Mcnally [facility] Room Number: 176 Indications: ARRHYTHMIAS Rhythm: Sinus Technical Quality: technically limited FINDINGS Left Ventricle Normal left ventricular size, wall thickness and systolic function with no obvious regional wall motion abnormalities. Normal left ventricular diastolic filling pattern for age. The ejection fraction is visually estimated at 60%. Right Ventricle The right ventricle is normal in size and function. Right Atrium The right atrium is normal in size. Left Atrium The left atrium is normal in size. The interatrial septum is intact. Mitral Valve The mitral valve is normal in structure and function. There is no mitral regurgitation. Aortic Valve Structurally normal aortic valve without significant sclerosis or stenosis. There is no aortic regurgitation. Tricuspid Valve The tricuspid valve is normal in structure and function. There is no tricuspid regurgitation. Pulmonic Valve Structurally normal pulmonic valve. There is no pulmonic regurgitation. Pericardium Normal pericardium without effusion. No pleural effusion. Great Vessels Normal aortic root dimension. The aortic arch and great vessels are well seen and are normal. CONCLUSIONS 1. Normal EF of 60%. 2. No significant valvular disease. Kar Cameron M.D. (Electronically Signed) Final Date: 22 June 2016 08:14 MEASUREMENTS (Male / Female) Normal Values 2D ECHO LV Diastolic Diameter PLAX 5.6 cm 4.2 - 5.9 / 3.9 - 5.3 cm LV Systolic Diameter PLAX 3.8 cm 2.1 - 4.0 cm LV Fractional Shortening PLAX 32.1 % 25 - 46 % LV Ejection Fraction 2D Teich 59.7 % IVS Diastolic Thickness 1.1 cm LVPW Diastolic Thickness 1.2 cm LV Relative Wall Thickness 0.4 RV Internal Dim ED PLAX 3.7 cm 1.9 - 3.8 cm LVOT Diameter 2.3 cm Aortic Root Diameter 3.4 cm LA Systolic Diameter LX 3.9 cm 3.0 - 4.0 / 2.7 - 3.8 cm LA Volume 45.0 cm 18 - 58 / 22 - 52 cm Ascending Aorta Diameter 3.3 cm DOPPLER AV Peak Velocity 139.0 cm/s AV Peak Gradient 7.7 mmHg AV Mean Velocity 94.3 cm/s AV Mean Gradient 4.0 mmHg AV Velocity Time Integral 22.6 cm LVOT Peak Velocity 97.8 cm/s LVOT Peak Gradient 3.8 mmHg LVOT Mean Velocity 59.3 cm/s LVOT Mean Gradient 2.0 mmHg LVOT Velocity Time Integral 14.4 cm LVOT Stroke Volume 59.8 cm AV Area Cont Eq vti 2.6 cm AV Area Cont Eq pk 2.9 cm MV Peak Velocity 110.0 cm/s MV Peak Gradient 4.8 mmHg MV Mean Velocity 69.2 cm/s MV Mean Gradient 2.0 mmHg Mitral E Point Velocity 85.4 cm/s Mitral A Point Velocity 69.6 cm/s Mitral E to A Ratio 1.2 MV PHT Velocity 116.0 cm/s MV Deceleration [place] 647.0 cm/s MV Pressure Half Time 53.8 ms MV Area PHT 4.1 cm MV Deceleration Time 169.0 ms PV Peak Velocity 176.0 cm/s PV Peak Gradient 12.4 mmHg PV Mean Velocity 110.0 cm/s PV Mean Gradient 6.0 mmHg PV Velocity Time Integral 23.3 cm LV E' Lateral Velocity 8.9 cm/s Mitral E to LV E' Lateral Ratio 9.6 LV E' Septal Velocity 10.9 cm/s Mitral E to LV E' Septal Ratio 7.8
[2016-06-22 10:02] LABS: ABSOLUTE BASOPHIL COUNT 0 /CUMM (0.0-0.2); ABSOLUTE EOSINOPHIL COUNT 0.2 /CUMM (0.0-0.7); ABSOLUTE GRANULOCYTE CT 4.2 /CUMM (1.4-6.5); ABSOLUTE MONOCYTE COUNT 0.6 /CUMM (0.10-0.60); MEAN PLATELET VOLUME 7.9 FL (7.4-10.4); WHITE BLOOD CELL COUNT 6.7 /CUMM (4.8-10.8)
[2016-06-22 10:21] LABS: ABSOLUTE LYMPH COUNT 1.6 /CUMM (1.2-3.4); BASOPHIL % 0.3 % (0.0-2.0); EOSINOPHIL % 3.5 % (0-5); GRANULOCYTE % 62.4 % (42.2-75.2); HEMATOCRIT 35.1 % (42-52); MEAN CORPUSCULAR HGB 27.8 PG (27.0-31.0); MEAN CORPUSCULAR HGB CONC 32.4 G/DL (33.0-37.0); MEAN CORPUSCULAR VOLUME 85.7 FL (80.0-94.0); PLATELET COUNT 212 /CUMM (130-400); RBC DISTRIBUTION WIDTH 15.1 % (11.5-14.5)
--- NOTE | 2016-06-22 11:45 | RADIOLOGY REPORT ---
EXAMINATION: XR CHEST CLINICAL INFORMATION: Shortness of breath COMPARISON: 06/19/2016 TECHNIQUE: 2 views of the chest were obtained. FINDINGS: Lungs are symmetrically hypoinflated and clear; no acute pulmonary consolidation or pleural effusion. Cardiac silhouette is normal in size. The mediastinal and hilar contours are normal. No acute skeletal findings. IMPRESSION: No acute cardiopulmonary abnormalities compared to 06/19/2016.
--- NOTE | 2016-06-22 12:58 | NUCLEAR MEDICINE REPORT ---
EXAMINATION: PULMONARY VENTILATION PERFUSION STUDY CLINICAL INFORMATION: Shortness of breath, tachycardia. COMPARISON: No previous lung scan is available for comparison. Radiographs of the chest dated 06/22/2016 are available for comparison. TECHNIQUE: Serial gamma scintillation camera images were obtained over the posterior chest during the single breath, equilibrium rebreathing and washout of 10.6 mCi Xe 133 gas. The patient then received 4.4 mCi Tc-99m MAA intravenously and a 6-view perfusion study was performed. FINDINGS: Ventilation images: On the single breath and equilibrium images there is homogeneous distribution of gas bilaterally. During the washout phase there is no abnormal retention in the lungs. Mild xenon retention that is likely in the liver is noted and is probably evidence of hepatic steatosis. Perfusion images: No segmental perfusion defects are present. There is homogeneous distribution of activity bilaterally. There are no focal anatomic appearing perfusion defects present. The cardiac silhouette in mediastinum are moderately dilated. IMPRESSION: Very low probability of pulmonary embolism.
[2016-06-22 13:56] LABS: PTT 68 SEC (25-37)
[2016-06-22 15:33] VITALS: BP 122/78
--- NOTE | 2016-06-22 15:49 | PN- Cardiology ---
Subjective Subjective: * Breathing is improved. * Heart rate is improved. * No evidence of increased RV pressures on his echocardiogram Objective Vital Signs and I&Os Vital Signs Date Time Temp Pulse Resp B/P Pulse O2 O2 Flow FiO2 Ox Delivery Rate 06/22 1533 98.3 94 18 122/78 93 Room Air 06/22 0944 95 142/84 06/22 0944 95 142/84 06/22 0813 98.3 95 18 142/84 95 Nasal 2.0L Cannula 06/22 0800 95 Nasal 2.0L Cannula 06/22 0007 98.4 94 20 102/90 90 Nasal Cannula 06/22 0000 93 Nasal 2.0L Cannula 06/21 1616 98.6 95 20 126/82 92 Nasal 2.0L Cannula Intake & Output 06/22 1600 06/22 0800 06/22 0000 06/21 1600 06/21 0800 06/21 0000 Intake Total 2214.4 240 2072.8 392.8 200 200 Output Total Balance 2214.4 240 2072.8 392.8 200 200 Intake, IV 414.4 392.8 392.8 Intake, Oral 2961 586 1010 200 200 Physical Exam: General: WD/ WN male in NAD; alert and oriented x 3 Neck: no JVD, no carotid bruit Heart: RRR w/o murmur Lungs: clear bilaterally Extremities: no edema Assessment/Plan Assessment/Plan * This patient has a better controlled heart rate without shortness of breath. There is no evidence of increased RV pressures on his echocardiogram. We will discharge this patient to home with follow up in the office in one to two weeks. Continue his current dose of Atorvastatin, Olanzapine, Amlodipine and Losartan. Add aspirin 162mg daily. We will also begin Metoprolol ER 25mg daily. Continue telemetry? No
[2016-06-22] MEDS ORDERED: METOPROLOL SUCC25 M1 PO (16:14)
[2016-06-22] MEDS ORDERED: ASPIRIN81 M4 PO (16:14)
--- NOTE | 2016-06-22 16:17 | Patient Discharge Instructions ---
Discharge Instructions General Discharge Information Special Instructions: -PLEASE FOLLOW UP WITH YOUR PRIMARY CARE PHYSICIAN WITHIN ONE WEEK AFTER DISCHARGE. -PLEASE FOLLOW UP WITH PROFESSOR OF HISTORY DR. PITTMAN WITHIN TWO WEEKS AFTER DISCHARGE. Acute Coronary Syndrome Inclusion Criteria At DC or during hospital stay patient has or had the following: ACS DIAGNOSIS No Discharge Core Measures Meds if any: Prescribed or Continued at Discharge Meds if any: NOT Prescribed or Continued at Discharge Congestive Heart Failure Inclusion Criteria At DC or during hospital stay patient has or had the following: CHF DIAGNOSIS No Discharge Core Measures Meds if any: Prescribed or Continued at Discharge Meds if any: NOT Prescribed or Continued at Discharge Cerebrovascular accident Inclusion Criteria At DC or during hospital stay patient has or had the following: CVA/TIA Diagnosis No Discharge Core Measures Meds if any: Prescribed or Continued at Discharge Meds if any: NOT Prescribed or Continued at Discharge Venous thromboembolism Inclusion Criteria VTE Diagnosis No VTE Type Pulmonary Embolism VTE Confirmed by (Test) CT CHEST ANGIOGRAM Discharge Core Measures - Per Current guidelines, there needs to be overlap - treatment for the first 5 days of Warfarin therapy. - If discharged on Warfarin prior to 5 days of - overlap therapy, the patient will need to be - assessed for post discharge needs including - *Post discharge parental anticoagulation - *Warfarin and/or parental anticoagulation education - *Follow up date to check INR post discharge At least 5 days overlap therapy as Inpatient Yes Meds if any: Prescribed or Continued at Discharge Note: Overlap Therapy is Warfarin and Anticoagulant Meds if any: NOT Prescribed or Continued at Discharge
--- NOTE | 2016-06-22 17:59 | Discharge Summary ---
Visit Information Visit Dates Admission Date: 06/19/16 Discharge Date: 06/22/16 Hospital Course Course Attending Physician: TOYA ZAVALA PhD,NIYA Campoverde [facility]: This is a 50-year-old gentleman with a past medical history significant for hypertension, hyperlipidemia, schizoaffective disorder, previous admission at [facility] in January 2016 for multilobar pneumonia requiring prolonged intubation and a subsequent tracheostomy presented to the emergency room with the chief complaint of shortness of breath. Upon admission Vital signs temperature 102.6, pulse 125, aspiration 20 on 3 L nasal cannula saturation 94%, blood pressure 148/77 Labs significant for WBC 16.5, troponin negative, rest of the lab within normal limits Imaging studies during that admission Chest x-ray-no acute cardiopulmonary abnormality Venous Doppler study-no evidence of DVT CTA chest-poor study because of the delayed bolus timing but there is no evidence of pulmonary embolus V/Q scan low probability for PE Problem list Shortness of breath Fever under evaluation ? Neuroleptic malignant syndrome Hypertension Hyperlipidemia Schizoaffective disorder History of multilobar pneumonia with prolonged intubation required tracheostomy Plan * Troponin and EKG negative * D-dimer was elevated, bilateral venous Doppler lower extremity and chest CT a were negative for embolism. VQ scan revealed very low possibility for pulmonary embolism * Patient was started on IV heparin * No evidence of pneumonia or UTI per chest x-ray/CAT scan and urinalysis respectively, blood and urine cultures remain negative; likely viral, will hold off on anti biotics * Flu swab is negative * Strep and Legionella urine antigens are negative * Patient is saturating well on room air 94% on day of discharge * Echocardiogram 06/22 CONCLUSIONS 1. Normal EF of 60%. 2. No significant valvular disease. * According to the psychiatrist. Continue Zyprexa 15 mgs twice a day. * Diet-heart healthy diet * DVT prophylaxis-ALP S/heparin IV * CODE STATUS-full code Note Will cc patient's psychiatrist Halle Abbott Allergies: Coded Allergies: ceftriaxone (fever, rash, eosinophilia 01/16/16) Disposition Summary Disposition Principal Diagnosis: Shortness of breath and tachycardia to rule out PE Additional Diagnosis: Schizoaffective disorder Discharge Disposition: home or self care Discharge Instructions General Discharge Information Code Status: Full Code Patient's Diet: Heart healthy diet Patient's Activity: As tolerated Follow-Up Instructions/Appts: -PLEASE FOLLOW UP WITH YOUR PRIMARY CARE PHYSICIAN WITHIN ONE WEEK AFTER DISCHARGE. -PLEASE FOLLOW UP WITH DEGREASING SOLUTION MIXER DR. PITTMAN WITHIN TWO WEEKS AFTER DISCHARGE. Medications at Discharge Discharge Medications: Continue taking these medications: Losartan Potassium (Losartan Potassium) 25 MG TABLET 1 Tablet ORAL DAILY Days = 30 Comments: Last Taken: 06/22/16 Time: 10AM Amlodipine Besylate (Amlodipine Besylate) 10 MG TABLET 1 Tablet ORAL DAILY Days = 30 Comments: Last Taken: 06/22/16 Time: 10AM Simvastatin (Simvastatin*) 20 MG TABLET 1 Tablet ORAL Every night Days = 30 Comments: Last Taken: 06/22/16 Time: 4PM PT GIVEN ATORVASTATIN Olanzapine (Olanzapine) 20 MG TABLET 1 Tablet ORAL TWICE DAILY Days = 30 Comments: Last Taken: 06/22/16 Time: 10AM PT GIVEN 15MG Start taking the following new medications: Aspirin (Aspirin*) 81 MG TAB.CHEW 2 Tablet ORAL DAILY Qty = 30 No Refills Comments: NOT GIVEN IN HOSPITAL Metoprolol Succinate (Metoprolol Succinate) 25 MG TAB 1 Tablet ORAL DAILY Qty = 30 No Refills Comments: NOT GIVEN IN HOSPITAL Copies To: KEVIN RODRIGUEZ APRN; SULY Holcomb,HALLE
--- NOTE | 2016-06-22 19:24 | PN- Psychiatry ---
Assessment/Plan Impression: The patient is stable without emerging symptomatology of his schizoaffective disorder, but will require close monitoring at the current lower dose of olanzapine/Zyprexa. With the patient's written permission, I have contacted [facility], and left a message regarding the patient's psychiatric course during this admission, including the reduction of olanzapine. The patient's psychiatrist, Dr. Abbott , he is away this week, but I have asked that an appointment be arranged for the patient as soon as possible thereafter. The patient is not psychotic, is exhibiting no paranoia at this time, is not suicidal, and is ready for discharge from a psychiatric point of view. Suggestion: 1. Please continue olanzapine/Zyprexa 15 mg PO 2 times per day 2. Please send a discharge summary to the patient's psychiatrist, Dr. Alex Abbott at [facility] in [facility]. We do not anticipate further visits, but please reconsult if other psychiatric matters arise. Frederick Johnson APRN, pager [phone]. Subjective Subjective: The patient is alert and oriented. He is sitting on the edge of his bed, and is calm, conversational and cooperative. Denies suicidal or homicidal ideation. He is concerned about the reduction in his Zyprexa, but agrees to take 15 mg PO 2 times per day, subject to review by his psychiatrist, Dr. Alex Abbott, and his outboard motor inspector, Kar Cameron MD. The patient denies any current exacerbation of his schizoaffective symptoms, including denial of insomnia and denial of auditory hallucinations, or usually comprised of voices making comments about him. Objective Last 24 Hrs of Vital Signs/I&O Vital Signs Date Time Temp Pulse Resp B/P Pulse O2 O2 Flow FiO2 Ox Delivery Rate 06/22 1533 98.3 94 18 122/78 93 Room Air 06/22 0944 95 142/84 06/22 0944 95 142/84 06/22 0813 98.3 95 18 142/84 95 Nasal 2.0L Cannula 06/22 0800 95 Nasal 2.0L Cannula 06/22 0007 98.4 94 20 102/90 90 Nasal Cannula 06/22 0000 93 Nasal 2.0L Cannula Intake & Output 06/22 1600 06/22 0800 06/22 0000 Intake Total 2214.4 240 2072.8 Output Total Balance 2214.4 240 2072.8 Intake, IV 414.4 392.8 Intake, Oral 3114 313 7360 Current Medications: Current Medications Sig/Earnest Start time Last Medication Dose Route Stop Time Status Admin Acetaminophen 650 MG Q6P PRN 06/19 1330 DCD 06/19 PO 2250 Acetaminophen/ 1 TAB Q6P PRN 06/19 1330 DCD 06/22 Hydrocodone Bitart PO 0833 Amlodipine Besylate 10 MG DAILY 06/20 1000 DCD 06/22 PO 0944 Atorvastatin Calcium 10 MG 1700 06/19 1700 DCD 06/22 PO 1608 Heparin Sodium 25,000 UNIT Q24H 06/19 1900 DCD 06/22 (Porcine) IV 1131 Sodium Chloride 500 ML Losartan Potassium 25 MG DAILY 06/19 1310 DCD 06/22 PO 0944 Olanzapine 15 MG BID 06/20 2200 DCD 06/22 PO 0944 Oxycodone HCl 10 MG Q6P PRN 06/19 1330 DCD 06/21 PO 0630 Results Last 24 Hrs of Labs/Mics: Laboratory Tests 06/22 06/22 06/22 1245 0650 0035 Chemistry Sodium (137 - 145 mmol/L) 138 Potassium (3.5 - 5.1 mmol/L) 4.6 Chloride (98 - 107 mmol/L) 94 L Carbon Dioxide (22 - 30 mmol/L) 35 H Anion Gap (5 - 16) 9 BUN (9 - 20 mg/dL) 7 L Creatinine (0.7 - 1.2 mg/dL) 0.7 Estimated GFR (>60 ml/min) > 60 BUN/Creatinine Ratio (7 - 25 %) 10.0 Coagulation APTT (25 - 37 SEC) 68 H 73 H Hematology CBC w Diff NO MAN DIFF REQ WBC (4.8 - 10.8 /CUMM) 6.7 RBC (4.70 - 6.10 /CUMM) 4.10 L Hgb (14.0 - 18.0 G/DL) 11.4 L Hct (42 - 52 %) 35.1 L MCV (80.0 - 94.0 FL) 85.7 MCH (27.0 - 31.0 PG) 27.8 RDW (11.5 - 14.5 %) 15.1 H Plt Count (130 - 400 /CUMM) 212 MPV (7.4 - 10.4 FL) 7.9 Gran % (42.2 - 75.2 %) 62.4 Lymphocytes % (20.5 - 51.1 %) 24.4 Monocytes % (1.7 - 9.3 %) 9.4 H Eosinophils % (0 - 5 %) 3.5 Basophils % (0.0 - 2.0 %) 0.3 Absolute Granulocytes (1.4 - 6.5 /CUMM) 4.2 Absolute Lymphocytes (1.2 - 3.4 /CUMM) 1.6 Absolute Monocytes (0.10 - 0.60 /CUMM) 0.6 Absolute Eosinophils (0.0 - 0.7 /CUMM) 0.2 Absolute Basophils (0.0 - 0.2 /CUMM) 0 PUBS MCHC (33.0 - 37.0 G/DL) 32.4 L
== END 2016-06-22 17:57 | DRG 722 ==
LOC: ENRESERVDT → ENRESERVTM → ERH 08:19 → 1NO 13:15 → ERHI 13:15 → 1NO 16:31
PROVIDERS: Dermatology; Internal Medicine; Physician Assistant; Student in an Organized Health Care Education/Training Program; ADMIT Internal Medicine Interventional Cardiology
DX: R50.9 Fever, unspecified (principal); I10 Essential (primary) hypertension; E78.5 Hyperlipidemia, unspecified; F25.9 Schizoaffective disorder, unspecified; E83.42 Hypomagnesemia; R06.02 Shortness of breath; G47.33 Obstructive sleep apnea (adult) (pediatric); F17.200 Nicotine dependence, unspecified, uncomplicated; R00.0 Tachycardia, unspecified; Z86.73 Personal history of transient ischemic attack (TIA), and cerebral infarction without residual deficits
CPT/HCPCS: 1NP; 36415; 78582; 81001; 81003; 82436; 87040; 87070; 87086; 87449; 87450; 87804; 87804-59; 93005; 93010; 93306; 93970; 96361; 96365; 96375; 99291; A9540; A9558; G0480; J0131; J0282; J1644; J7040; Q2036